=== PATIENT | female | born 1950 | race Caucasian/White ===

== ENCOUNTER 2019-06-26 01:56 | Inpatient (IN) ==
[2019-06-26] MEDS ORDERED: NS 1,000 ML IV ONE (02:04)
[2019-06-26] MEDS ORDERED: ZOFRAN IV ONE (02:04)
[2019-06-26] MEDS ORDERED: MORPHINE IV ONE (02:04)
[2019-06-26 02:43] LABS: BASO# 0.01 X1000 (0.0-0.2); BASO% 0.1 % (0.0-0.8); EOS# 0.01 X1000 (0.0-0.7); EOS% 0.1 % (0.0-10.0); HEMATOCRIT 27.9 % (37.0-47.0); HEMOGLOBIN 10.1 g/dL (12.0-16.0); IMM GRAN# 0.04 X1000 (0.0-0.04); IMM GRAN% 0.5 % (0.0-0.5); LYMPH# 1.16 X1000 (1.2-3.4); LYMPH% 13.9 % (20.5-51.1); MCH 38.1 PG (27-31); MCHC 36.2 g/dL (33-37); MCV 105.3 FL (81-99); MONO# 0.95 X1000 (0.11-0.59); MONO% 11.4 % (1.7-9.3); MPV 12.1 FL (7.4-10.4); NEUT# 6.19 X1000 (1.4-6.5); PLT 99 X1000 (130-400); RBC 2.65 XMIL (4.2-5.4); RDW 12.9 % (11.5-14.5); WBC 8.36 X1000 (4.8-10.8)
[2019-06-26 03:13] LABS: AGAP 23; ALB/GLOB RATIO 1.4; ALBUMIN 4.3 g/dL (3.5-5.0); ALKALINE PHOSPHATASE 140 U/L (32-104); BUN 39 mg/dL (8-22); CALCIUM 9.7 mg/dL (8.8-10.2); CHLORIDE 91 mmol/L (98-107); COSMO 285; CREATININE 0.7 mg/dL (0.5-0.9); ESTIMATED GFR > 60; GLUCOSE 163 mg/dL (70-104); GOT 92 U/L (10-30); GPT 55 U/L (10-36); LIPASE 69 U/L (13-60); SODIUM 136 mmol/L (136-145); TCO2 22 mmol/L (25-35); TOTAL BILIRUBIN 2.75 mg/dL (0.20-1.00); TOTAL PROTEIN 7.4 g/dL (6.3-8.3)
--- NOTE | 2019-06-26 04:16 | PROVIDER DOCUMENTATION ---
HPI-General Adult - General Chief Complaint: N/V/D Stated Complaint: n/v Time Seen by Provider: 06/26/19 02:02 Source: patient Allergies/Adverse Reactions: Patient Allergies Allergy/AdvReac Type Severity Reaction Status Date / Time No Known Allergies Allergy Verified 02/23/18 10:38 Home Medications: Home Medication List Medication Instructions Recorded Confirmed Last Taken Type Escitalopram Oxalate [Lexapro] 5 mg PO DAILY 02/23/18 02/23/18 02/22/18 History Lisinopril/Hydrochlorothiazide 1 each PO DAILY 02/23/18 02/23/18 02/22/18 History [Lisinopril-Hctz 10-12.5 mg Tab] Ondansetron HCl [Zofran] 4 mg PO Q6-8H PRN PRN #10 tablet 02/23/18 Unknown Rx - History of Present Illness -Gen Adult Nature of Presenting Problems: Pt presents with n/v/d, x 1 week, getting progressively worse, pt reports dark colored vomit, with associated ap, generalized, comes and goes, pt denies f/c, magdaleno, cp, sob, cough, pt is lying in bed in no acute distress. Location of Pain/Injury: reports: abdomen Pain Radiation: reports: no radiation Quality of Pain: reports: sharp Severity: reports: moderate Onset/Duration: reports: 1 week ago Timing: reports: still present Context/Activities at Onset: reports: none Modifying Factors: improves with: nothing Associated Symptoms: reports: diarrhea, nausea, vomiting Similar Symptoms Previously?: No Recently seen or treated by another doctor?: No Review of Systems - Adult - REVIEW OF SYSTEMS - ADULT Constitutional: reports: no symptoms reported Eyes: reports: no symptoms reported Ears, Nose, Mouth & Throat: reports: no symptoms reported Cardiovascular: reports: no symptoms reported Respiratory: reports: no symptoms reported Gastrointestinal: reports: see HPI Genitourinary: reports: no symptoms reported Musculoskeletal: reports: no symptoms reported Integumentary: reports: no symptoms reported Neurological: reports: no symptoms reported Psychiatric: reports: no symptoms reported Endocrine: reports: no symptoms reported Hematologic/Lymphatic: reports: no symptoms reported Allergic/Immunologic: reports: no symptoms reported All Other Systems: Reviewed and Negative Past History - Adult - PAST MEDICAL HISTORY-ADULT Review of Records: reports: Old Records Reviewed, Nursing Assessment Review, Medications Reviewed, Social history reviewed & non-contributory. Major Childhood Illnesses: reports: denies history Cardiovascular: reports: denies history Respiratory: reports: denies history Gastrointestinal: reports: denies history Obstetrical/Gynecological: reports: denies history Genitourinary: reports: denies history Musculoskeletal: reports: denies history Neurological: reports: denies history Psychiatric: reports: denies history Endocrine/Immune: reports: denies history Other Conditions: reports: denies history Physical Exam-General - PHYSICAL EXAM-ADULT Initial Vital Signs Reviewed: Yes - CONSTITUTIONAL General Appearance: appears well - EYES Eyes: PERRL/EOMI - HEAD, EARS, NOSE, MOUTH & THROAT HENMT: normocephalic/atraumatic - NECK Neck: normal inspection - RESPIRATORY Respiratory: lungs clear, no respiratory distress, no accessory muscle use - CARDIOVASCULAR Cardiovascular: regular rate, rhythm - GASTROINTESTINAL (ABDOMEN) Abdominal Exam: non tender, soft - LYMPHATIC Lymphatic: no adenopathy - MUSCULOSKELETAL Back Exam: normal inspection Extremity: normal range of motion - SKIN Integumentary: normal color - NEUROLOGIC Neurologic: grossly normal - PSYCHIATRIC Psych/Mental Status: normal mood/affect Progress - PLAN OF CARE/RESULTS Progress/Plan/Lab Results: Vital Signs - 8 hr 06/26/19 02:15 06/26/19 02:23 06/26/19 02:30 Blood Pressure 127/110 132/99 132/90 O2 Sat by Pulse Oximetry 96 98 100 06/26/19 02:19 Stool Occult Blood (JENNIFER) - Final Stool Laboratory Results - last 24 hr 06/26/19 06/26/19 06/26/19 02:10 02:10 02:10 WBC 8.36 RBC 2.65 L Hgb 10.1 L Hct 27.9 L MCV 105.3 H MCH 38.1 H MCHC 36.2 RDW Std Deviation 12.9 Plt Count 99 L MPV 12.1 H Immature Gran % (Auto) 0.5 Neut % (Auto) 74.0 Lymph % (Auto) 13.9 L [place] % (Auto) 11.4 H Eos % (Auto) 0.1 Baso % (Auto) 0.1 Immature Gran # (Auto) 0.04 Neut # (Auto) 6.19 Lymph # (Auto) 1.16 L [place] # (Auto) 0.95 H Eos # (Auto) 0.01 Baso # (Auto) 0.01 Sodium 136 Potassium 3.0 L Chloride 91 L Carbon Dioxide 22 L Anion Gap 23 BUN 39 H Creatinine 0.7 Estimated GFR/1.73 m2 > 60 BUN/Creatinine Ratio 56 Glucose 163 H Calculated Osmolality 285 Calcium 9.7 Total Bilirubin 2.75 H AST 92 H ALT 55 H Alkaline Phosphatase 140 H Total Protein 7.4 Albumin 4.3 Globulin 3.1 Albumin/Globulin Ratio 1.4 Lipase 69 H Plasma Lactate 3.9 H Orders Category Date Time Status CT ABD/PELVIS W/IV CONT ONLY [CT] Stat Exams 06/26/19 02:04 Taken CBC WITH ELECTRONIC DIFF [HEME] Stat Lab 06/26/19 02:10 Completed COMPREHENSIVE METABOLIC PANEL [CHEM] Stat Lab 06/26/19 02:10 Completed LACTATE, PLASMA [CHEM] Stat Lab 06/26/19 02:10 Completed LIPASE [CHEM] Stat Lab 06/26/19 02:10 Completed OCCULT BLOOD SCREENING [STOOL] Stat Lab 06/26/19 02:19 Completed UA [URINALYSIS W/POSS RFLX CULT] [URINALYSIS] Stat Lab 06/26/19 02:03 Uncollected 0.9% Sodium Chloride Inj [Ns] 1,000 ml Med 06/26/19 02:04 Discontinued IV 999 mls/hr Morphine Med 06/26/19 02:04 Discontinued 4 mg IV NOW ONE Ondansetron [Zofran] Med 06/26/19 02:04 Discontinued 8 mg IV NOW ONE Result Diagrams: 06/26/19 02:10 06/26/19 02:10 Departure - Departure Date of Disposition Decision: 06/26/19 Time of Disposition Decision: 05:00 DIAGNOSIS: Nausea vomiting and diarrhea GI bleed Qualifiers: GI bleed type/associated pathology: unspecified gastrointestinal hemorrhage type Qualified Code(s): K92.2 - Gastrointestinal hemorrhage, unspecified Disposition: ADMITTED INPATIENT 09 Certified Medical Emergency: Emergent Condition: Stable Referrals and Follow-Ups: ADY MARCANO [Primary Care Provider] - - Critical Care Note This patient required my direct & personal management of CC.: No Attestation - Physician/ HUMAIRA Attestation Patient care was provided by Advanced Practice Provider:: No The physician spent face to face time with patient:: Yes Advanced Practice Provider documentation review:: Supervising physician onsite and consulted in the evaluation and care of this patient. The physician did have a face to face encounter with the patient.
[2019-06-26 04:43] LABS: URINE SOURCE CLEAN CATCH
[2019-06-26 04:48] LABS: BILIRUBIN URINE SMALL (NEGATIVE); BLOOD URINE MODERATE (NEGATIVE); COLOR ORANGE; GLUCOSE URINE NEGATIVE (NEGATIVE); KETONE URINE 40 mg/dL (NEGATIVE); LEUKOCYTES URINE LARGE (NEGATIVE); NITRITE URINE NEGATIVE (NEGATIVE); PROTEIN URINE TRACE mg/dL (NEGATIVE); SP GRAVITY URINE 1.033; TURBIDITY URINE HAZY (CLEAR); UROBILINOGEN URINE 4 mg/dL (NORMAL)
[2019-06-26 04:58] LABS: URINE CASTS NONE SEEN; URINE CRYSTALS NONE SEEN; URINE SMALL ROUND CELLS NONE SEEN; URINE YEAST NONE SEEN
[2019-06-26 04:59] LABS: UR EPITHELIAL CELLS <10 /HPF (<10); URINE BACTERIA 4+ /HPF; URINE RBC <10 /HPF (<10); URINE WBC 20-40 /HPF (<10)
[2019-06-26] MEDS ORDERED: POTASSIUM CHLORIDE 40 MEQ/SWI 40 MEQ/100 ML IVPB IV ONE (05:54)
[2019-06-26] MEDS ORDERED: SODIUM CHLORIDE 0.9% INJ SCH (06:00)
[2019-06-26] MEDS ORDERED: PROTONIX IV SCH (06:00)
[2019-06-26] MEDS: POTASSIUM CHLORIDE 20 MEQ/SWI 20 MEQ/100 ML IVPB IV SCH ×2 (06:14→09:19)
[2019-06-26 06:28] LABS: HEMOGLOBIN A1C 5.1 % (4.8-6.0)
--- NOTE | 2019-06-26 06:29 | EKG Report ---
Test Performed on : 06/26/2019 06:10:59 AM Test Reason : N/V Blood Pressure : / mmHG Vent. Rate : 104 BPM Atrial Rate : 104 BPM P-R Int : 118 ms QRS Dur : 086 ms QT Int : 354 ms P-R-T Axes : 008 005 053 degrees QTc Int : 465 ms Sinus tachycardia. with premature ventricular complexes. or fusion complexes Otherwise normal ECG No previous ECGs available Unconfirmed Result
[2019-06-26 06:31] LABS: PTT 28.7 Seconds (22.3-41.8)
[2019-06-26 06:46] LABS: INR 1.22; PROTIME 15.6 Seconds (11.0-16.0)
[2019-06-26 07:09] LABS: HEMATOCRIT 25.5 % (37.0-47.0); HEMOGLOBIN 9.1 g/dL (12.0-16.0)
[2019-06-26] MEDS ORDERED: POTASSIUM CHLORIDE 20% LIQUID PO ONE (07:25)
[2019-06-26] MEDS ORDERED: ZOFRAN IV PRN (07:26)
--- NOTE | 2019-06-26 07:27 | Diag Imaging Result Doc PS360 ---
EXAM: CT ABD/PELVIS W/IV CONT ONLY 06/26/2019 HISTORY: colitis TECHNIQUE: This exam was performed using automated exposure control, adjustment of mA or kV according to patient size, and/or use of iterative reconstruction technique. COMMENT: There are fibrotic changes present in the lung bases which have not changed significantly since 02/23/2018. There is a hiatal hernia. There is profound hepatic steatosis. There is no evidence of cholelithiasis. The spleen is not enlarged. The adrenal glands are not enlarged. The kidneys are without evidence of hydronephrosis or stones. There is a small cortical cyst anteriorly in the right kidney. There is a lesion in the upper pole of the left kidney which was also demonstrated the time the previous examination and which has not apparently changed significantly in size. The CT density is stable at almost 60 Hounsfield units on both the arterial and portal venous phases suggesting that this is a hyperdense cyst. There is no record of previous renal ultrasound, which may be desirable for further evaluation. The aorta is not distended. The mesenteric and renal arteries are patent. The pancreas is unremarkable. There is no evidence of bowel obstruction. There is no evidence of significant adenopathy. Pelvis: The appendix is not distended or inflamed in appearance. There is no evidence of free fluid. There are a few diverticula in the sigmoid colon without evidence of diverticulitis. The urinary bladder is not distended. There is severe degenerative arthritis in the right hip. There are degenerative changes in the lumbar spine with spinal stenosis at L4-5. IMPRESSION: 1. Hepatic steatosis. 2. No evidence of colitis. 3. Probable hyperdense cyst in the left upper renal pole. Advise further evaluation with ultrasonography. Other nonacute findings as described above. Electronically signed by Ayaan Gil 06/26/2019 7:25 AM
[2019-06-26] MEDS: MORPHINE IV PRN ×2 (07:32→10:14)
[2019-06-26] MEDS ORDERED: TYLENOL PR PRN (08:02)
[2019-06-26] MEDS ORDERED: POTASSIUM PHOSPHATE 60 MEQ in NS 250 ML IV ONE (08:48)
[2019-06-26] MEDS: NS + KCL 40 MEQ 1,000 ML IV SCH ×3 (09:19→17:45)
[2019-06-26] MEDS ORDERED: NEUTRA-PHOS PO ONE (10:10)
--- NOTE | 2019-06-26 11:35 | HISTORY AND PHYSICAL ---
PRIMARY CARE PROVIDER: LEA Lee. DATE AND TIME: 06/26/2019 at 0545. CHIEF COMPLAINT: Nausea, vomiting, diarrhea. HISTORY OF PRESENT ILLNESS: Ms. Burroughs is a 69-year-old female, who states that approximately 2 weeks ago she did have a little cold, though she treated this with over-the- counter medications. She is not taking any antibiotics reportedly. She states that after this approximately 1 week ago she began having initially nausea and vomiting, and approximately 4 days ago began having diarrhea as well. The patient states for a week she has had daily episodes of vomiting. She states everything that she eats comes right back up. She has not been able to hold down fluids or food. She does report that over the last day or so she has had brown emesis. She also reports for the last 4 days she has had diarrhea. This initially started off as brown stools, though has progressed to being more loose, and the nurses reported in the ER this did appear to be black in appearance. She also reports that she has been having some epigastric pain that is a burning type pain in nature. She was tender in this area upon palpation. Though she denies any fever, body aches, or chills, she has reported some dizziness, feeling lightheaded and weak. She has been having dizziness, feeling lightheaded and weak. She denies any chest pain or shortness of breath. The patient denies any dysuria or urinary frequency, though she has reported that she has had a very strong odor to her urine, though she denies any lower abdominal pain or low back pain as well. She denies any pain, numbness, tingling or swelling in extremities. The patient states that she took 1 ibuprofen on either Tuesday or Tuesday, just 2 to 3 days ago, though denies any other [id number] use of NSAIDs. She denies any anticoagulation or antiplatelet use. The patient does report that she is a daily drinker, she does drink 1 to 2 glasses of wine daily, though she states she has not drank in a couple of weeks. She denies being around anyone that is sick or with similar symptoms. She denies any recent travel. She denies any new medication or any changes to her current medicines. Upon evaluation in the ER, the patient was noted to be slightly anemic with a hemoglobin 10.1, hematocrit 27.9, though her platelet count was a little low at 99. She also did have some hypokalemia, potassium of 3, though she does have transaminitis. Urinalysis did show moderate blood, large leukocytes, 20 to 40 white blood cells and 4+ bacteria. Given her symptoms, I did perform a CT abdomen and pelvis in the ER, which did show hepatic steatosis. There was no evidence of colitis. There was hyperdense cyst in the left upper renal pole. Her Hemoccult stool was positive. As previously mentioned, the nurses did note that upon her arrival she did have black-colored stool noted on her person. At this time, the patient will be admitted for further treatment and evaluation of her nausea, vomiting, diarrhea and likely upper GI bleed. REVIEW OF SYSTEMS: A 14 point review of systems was conducted with the patient. All were negative, except for pertinent positives mentioned in the above HPI. PAST MEDICAL HISTORY: 1. Hypertension. 2. History of depression. 3. Attention deficit disorder. 4. Daily alcohol use. PAST SURGICAL HISTORY: 1. A total of 3 right knee surgeries, the first 2 being arthroscopies and the last one being a total right knee replacement. 2. Breast augmentation. SOCIAL HISTORY: The patient states that she does live by herself and is normally able to perform activities of daily living and get around without assistive devices, though she has been very weak since her symptoms have started. She reports that she used to only occasionally smoke, though she has not smoked since age 32. She does report she has daily alcohol use with 1 to 2 glasses of wine daily. She denies any illicit drug use. FAMILY HISTORY: Positive for her mother having a history of multiple sclerosis. Her father was borderline diabetic. All other siblings are healthy. ALLERGIES: Patient has no known allergies. HOME MEDICATIONS: We are waiting for the patient's home medication list to be updated and verified. She verbally reports to me that she takes some Ritalin, an antidepressant and a blood pressure medication. DIAGNOSTIC DATA/LABORATORY RESULTS: White blood cell count is 8360, hemoglobin 10.1, hematocrit 27.9, platelet count is 99. PT 15.6, INR 1.22, PTT is 28.7. Sodium 136, potassium 3, chloride 91, serum bicarbonate is 22, BUN 39, creatinine 0.7 with a GFR greater than 60. Glucose 163, calcium 9.7, magnesium 1.9, total bilirubin is 2.75, AST 92, ALT 55, alkaline phosphatase is 140, lipase 69. Plasma lactate is 3.9. Urinalysis was obtained via clean catch, was positive for protein, ketones, blood, bilirubin, large leukocytes, 20 to 40 white blood cells, and 4+ bacteria. EKG showed sinus tachycardia at a rate of 104 with a QTc of 465. CT abdomen and pelvis did show hepatic steatosis. There was no evidence of colitis. There was a probable hyperdense CS in the left upper renal pole. The radiologist did advise further evaluation with ultrasound. PHYSICAL EXAMINATION: VITAL SIGNS: Respirations 18, blood pressure is 132/86 with a MAP of 98. GENERAL: Ms. Burroughs is a pleasant 69-year-old female. She was resting on the ER stretcher. She was in no acute distress. She was awake, alert, and able to answer questions appropriately. HEENT: Head is atraumatic, normocephalic. Pupils are equal, round, reactive to light, were 3 mm bilaterally and brisk. Conjunctivae were slightly pale. Oral mucosa is moist. Oropharynx is clear. NECK: Supple. Trachea midline. CARDIOVASCULAR: Patient has S1, S2. No murmurs, gallops, rubs appreciated with a regular rate and rhythm. PULMONARY: Patient has symmetrical chest expansion bilaterally. Lung sounds are clear to auscultation in bilateral full simmons. ABDOMEN: Soft. It does not appear to be distended. The patient does have a slightly protuberant abdomen noted. She did have some tenderness in the epigastric area, though no rebound tenderness noted. Bowel sounds are present in all 4 quadrants, were normoactive. EXTREMITIES: No cyanosis or edema noted. Pulse, motor, and sensory were intact in all extremities. Radial pulses and pedal pulses were 2+ bilaterally. INTEGUMENTARY: The patient's skin color is slightly pale, dry and intact. NEUROLOGICAL: Patient is alert and oriented to person, place, time, and situation. She is able to move all extremities. There were no focal neurological deficits noted. ASSESSMENT AND PLAN: 1. Gastrointestinal bleed. Given the patient's reported possible vomiting of what sounds like coffee-ground emesis and reports of black stools by the nurses and positive Hemoccult stool, we suspect this is likely upper gastrointestinal bleed. The patient does report daily alcohol use of 1 to 2 glasses of wine a day. She will be on nothing by mouth at this time. We have placed her with Protonix 40 mg intravenous push every 12 hours. She is slightly anemic at this time. We will do a series of hemoglobins and hematocrits to monitor this closely and transfuse if necessary. We will provide some gentle intravenous hydration as well. At this time, the patient is hemodynamically stable. We will continue to monitor closely. We will await Gastroenterology consultation, evaluation and recommendations. 2. Nausea, vomiting, diarrhea. The patient reports this has been ongoing for a week. We have provided antiemetics. Will provide gentle intravenous hydration. Go ahead and order stool studies as well, and we will await Gastroenterology evaluation. 3. Transaminitis. Further evaluation of this: We have ordered a hepatitis profile, a lipid profile and an abdominal ultrasound as well. The patient's CT of the abdomen and pelvis did show hepatic steatosis. We will await these results and continue to follow. 4. Daily alcohol use. The patient reports that she drinks 1 to 2 glasses of wine a day, though states that she has not drank anything in the past week or so since she has not felt well. We will continue to monitor the patient closely for any signs of alcohol withdrawal. She was slightly hypokalemic with a potassium of 3, though magnesium was within normal limits. We are awaiting a phosphorus level. We will do daily banana bags. We will do as- needed Ativan and continue to follow. 5. Asymptomatic bacteriuria. We are awaiting a urine culture at this time. We will await those results and continue to follow. 6. Deep vein thrombosis prophylaxis provided with sequential compression devices. The patient has been placed on the medical floor telemetry. She will have vital signs q. 4 hours, strict intake and output. She will be n.p.o. until evaluated by Gastroenterology and until she has had her abdominal ultrasound. Further orders and recommendations pending hospital course, diagnostic studies and physician evaluation. Patient seen and examined by me face to face, all the laboratory, vitals signs and images were reviewed, patient presented to the emergency department complaining of nausea, vomiting and diarrhea associated with dizziness, as per the patient she started feeling bad two weeks ago with cold like symptoms and she took over the counter medications, possible NSAIDs, a few days ago she started having nausea with coffee ground emesis and melena, she is a possible alcoholic she well be admitted to the medical floor, IV fluids, GI consults, abdominal ultrasound, PPIs, I agree with the MEDICAL ORDERLY's assessment and plan, Trung Tafoya MD. Dictated by LEA Barfield for Trung Whitt MD cc: Trung Whitt MD MTDD
[2019-06-26] MEDS ORDERED: DIPRIVAN 1% ONE (12:08)
[2019-06-26] MEDS: M.V.I.-12 10 ML, FOLIC ACID 1 MG, MAGNESIUM SULFATE 1 GM, THIAMINE 100 MG in NS 1,000 ML IV SCH ×2 (12:30→13:04)
--- NOTE | 2019-06-26 12:33 | ENDOSCOPY OPERATIVE NOTE ---
[facility] ENDOSCOPY OPERATIVE NOTE , PATIENT: Jyothi Burroughs ADMISSION DATE: 06/26/2019 MR#: [id number] [facility] 1950 [facility] [id number] EGD PROCEDURE REPORT PROCEDURE DATE: 06/26/2019 SURGEON: Eduardo Joyce MD STATUS: inpatient DOCUMENTATION SUPERVISOR: PREOPERATIVE DIAGNOSIS: The patient is a 69 yr old female here for an EGD due to vomiting, epigastri c abdominal pain, and melena. PROCEDURE PERFORMED: EGD w/ biopsy MEDICATIONS: Per Anesthesia TOPICAL ANESTHETIC: none CONSENT: The patient understands the risks and benefits of the procedure and understands that these r isks include, but are not limited to: sedation, allergic reaction, infection, perforation and/or bleeding. Alternative means of evaluation and treatment include, among others: physical exam, x-rays, and/or surgical intervention. The patient elects to proceed with this endoscopic procedure. HISORY AND PHYSICAL: 06/26/2019 function. Hand hygiene and appropriate measures for infection prevention was taken. After the risks, benefits and alternatives of the procedure were thoroughly explained, Informed consent was verified, confirmed and timeout was successfully executed by the treatment team. The patient was anesthetized with topical anesthesia and the Pentax [id number] endoscope was introduced through the mouth and advanced to the second portion of the duodenu m. Retroflexion was performed in the stomach and revealed no abnormalities. The gastroscope was then slowly withdraw n and removed. ESOPHAGUS: Reflux esophagitis was found in the distal esophagus. Esophagitis was LA Class B: One or more mucosal breaks > 5mm, but without continuity across mucosal folds. STOMACH: Multiple erosions were found in the gastric antrum. Mild gastritis (inflammation) was foun d in the gastric antrum. H. pylori biopsies were taken. A single non-bleeding and clean-based ulcer ranging betwee n 5-9mm in size with surrounding edema was found. Biopsies were taken at edge of the ulcer. DUODENUM: Mild duodenal inflammation was found in the duodenal bulb. SPECIMENS REMOVED: Yes ADVERSE EVENTS: There were no complications. POSTOPERATIVE DIAGNOSIS: 1. Reflux esophagitis in the distal esophagus 2. Multiple erosions were found in the gastric antrum 3. Gastritis (inflammation) was found in the gastric antrum 4. Single ulcer ranging between 5-9mm in size was found; biopsies were taken 5. Duodenal inflammation was found in the duodenal bulb RECOMMENDATIONS: 1. Await biopsy results 2. Regular diet Transition PPI from IV to PO BID and continue for 3 months Avoid aspirin and NSAIDs REPEAT EXAM: Return in 3 months for EGD. Eduardo Joyce MD eSigned: Eduardo Joyce MD 06/26/2019 1:33 PM cc: PATIENT NAME: Jyothi Burroughs MR#: [id number]
[2019-06-26] MEDS ORDERED: XYLOCAINE-MPF 2% ONE (12:35)
[2019-06-26] MEDS: NEUTRA-PHOS PO SCH ×3 (13:04→20:12)
--- NOTE | 2019-06-26 13:06 | GASTROENTEROLOGY CONSULTATION ---
DATE: 06/26/2019 REASON FOR CONSULTATION: GI bleed, abnormal LFTs. HISTORY OF PRESENT ILLNESS: Ms. Jyothi Burroughs is a 69-year-old woman with a past medical history of hypertension who presents with 2 weeks of nausea, vomiting, and diarrhea. The patient describes having nonbloody, nonbilious emesis multiple times a day that is aggravated with p.o. intake including water. She has had some black stools. No hematochezia. She has had about 4 to 5 bowel movements per day that are small. she has had some associated abdominal pain in the upper abdomen that is mild as well as some lightheadedness, dizziness, and generalized weakness. She admits to having some sweats and decreased p.o. intake. No chills, fever, chest pain, or shortness of breath. She does state she drinks about 1 glass of wine per night. She says she makes sure she does not do that around her grandchildren. She has drank for many years. She denies a history of alcoholism, DUIs, or complications from alcoholism. REVIEW OF SYSTEMS: As per HPI, otherwise 12 point review of systems is negative. PAST MEDICAL HISTORY: Hypertension. PAST SURGICAL HISTORY: Right knee replacement. FAMILY HISTORY: Family history of MS. No GI malignancies. SOCIAL HISTORY: One glass of per night for many years. No smoking or drug use. MEDICATIONS: Lisinopril. ALLERGIES: No known drug allergies. PHYSICAL EXAMINATION: Vital Signs: Temperature is 98.0 degrees, heart rate of 99, respiratory rate 18, blood pressure 133/88, O2 saturation 97% on room air. General: The patient is awake, alert, oriented, in no acute distress. HEENT: Sclerae are anicteric. Moist mucous membranes. Extraocular motor intact. Neck: Supple. No JVD or lymphadenopathy. Cardiac: Normal rate and rhythm. No murmurs. Lungs: Clear to auscultation bilaterally. Abdomen: Soft, nontender, nondistended. Normoactive bowel sounds. No rebound or guarding. Extremities: No clubbing, cyanosis, or edema. Neurologic: Nonfocal. LABS: White count of 8.3, hemoglobin 9.1, MCV of 105, platelets of 99,000. INR of 1.22. Sodium 136, potassium 3.0, chloride of 91, bicarb 22, BUN of 39, creatinine of 0.7, glucose of 163, phosphorus of 0.9. Total bilirubin of 2.75, AST of 95, ALT of 55, alkaline phosphatase of 114. Troponin is normal. Lipase of 69, lactate of 3.9. UA shows moderate blood, trace protein, large leukocytes, a few epithelial cells. IMAGING: CT of the abdomen and pelvis shows severe hepatic steatosis. No splenomegaly. No evidence of colitis. Probable hyperdense cyst in the left upper renal pole. ASSESSMENT AND PLAN: Ms. Jyothi Burroughs is a 69-year-old woman with a past medical history of hypertension who presents with 2 weeks of nausea, vomiting, and diarrhea, and reported abdominal pain and melena. The patient was found on presentation to have macrocytic anemia, thrombocytopenia, abnormal liver function tests with low phosphorus, concerning for probable liver disease. Her CT shows hepatic steatosis without splenomegaly. I suspect that she does have cirrhosis given her thrombocytopenia, and AST, ALT elevation, and mildly elevated INR. I think this is likely from JAYLYN, given her history of regular alcohol use. She also has some elevated glucose but her A1c is 5.1, so no evidence of diabetes. For her melena, we will keep her nothing per oral, on a proton pump inhibitor twice a day intravenously, and plan for a diagnostic esophagogastroduodenoscopy today. She does have elevated lactate. I recommend fluid resuscitation. For alcoholism, thiamine, folate acid, multivitamin, replace her phosphorus, and monitor for alcohol withdrawal. She says she has not had any alcohol for the last 3 weeks. However, I am concerned that she potentially could have some withdrawal symptoms here if she actually did drink recently. There is no toxicology level here or alcohol level here. Thrombocytopenia, I suspect likely related to alcoholism. Abnormal urinalysis, the patient denies any urinary symptoms. Abnormal liver function tests, check her acute hepatitis panel to rule out hepatitis B and C. Anemia, check folate, B12, and iron studies including ferritin, iron, and total iron binding capacity. Thank you for this consult. We will follow with you. Please call with any questions or concerns.
[2019-06-26] MEDS ORDERED: LIBRIUM PO ONE (14:22)
--- NOTE | 2019-06-26 14:46 | PROGRESS NOTE ---
DATE: 06/26/2019 SUBJECTIVE: Today Ms. Burroughs refers to be doing fairly okay. She was seen obviously shaking. She has undergone EGD and was found to have some gastric, non bleeding ulcer. Biopsies were taken. OBJECTIVE: Vital signs: Blood pressure is 142/92, pulse of 102, respiration is 18, temperature is 98.4 degrees. General: Ms. Burroughs is a 69-year-old female. She is in bed, no distress. HEENT: Mucosa is pink and moist. Anicteric. Acyanotic. Neck: Supple. Chest: Air entry is bilaterally reduced. Some distant wheezing bilateral. Cardiovascular: Regular rate and rhythm. Abdomen: Soft. Extremities: No pedal edema. [employer]: Patient is awake, alert. She does have some tremors bilaterally. LABORATORY DATA: Hemoglobin is 9.1. Chemistry is also reviewed. Phosphorus is 0.9. ASSESSMENT: 1. Some coffee-ground emesis with melenic stool consistent with gastrointestinal bleed. The patient is status post esophagogastroduodenoscopy. It appears there was a nonbleeding gastric ulcer and some esophagitis. We will continue with recommendations from Gastroenterology. 2. Severe alcohol use and abuse noted. 3. Tremors concerning for alcohol withdrawal. We started the patient on a long-acting benzodiazepine and as-needed short-acting benzodiazepine as well. I have also started her on gabapentin. 4. Electrolyte abnormality secondary to alcohol use and abuse. Will replace the potassium, the phosphates and magnesium. 5. Mild lactic acidosis most likely from dehydration. 6. Alcohol-induced hepatitis. 7. Hepatic steatosis from alcohol abuse. PLAN: So, we will continue with adequate hydration on Ms. Burroughs. We will replace all her electrolyte abnormalities. I will repeat her potassium and phosphate for later on today and continue replacement if needed. She is status post EGD. We are going to advance her diet. She is also on PPI. I will continue addressing the possibility of alcohol withdrawal. cc: Tyrell De Guzman MD
[2019-06-26 15:24] LABS: URINE SOURCE CLEAN CATCH
[2019-06-26 15:44] LABS: BILIRUBIN URINE SMALL (NEGATIVE); BLOOD URINE SMALL (NEGATIVE); COLOR ORANGE; GLUCOSE URINE NEGATIVE (NEGATIVE); KETONE URINE 40 mg/dL (NEGATIVE); LEUKOCYTES URINE LARGE (NEGATIVE); NITRITE URINE POSITIVE (NEGATIVE); PH URINE 6.5; PROTEIN URINE 30 mg/dL (NEGATIVE); SP GRAVITY URINE 1.044; TURBIDITY URINE HAZY (CLEAR); UROBILINOGEN URINE 4 mg/dL (NORMAL)
[2019-06-26 15:50] LABS: UR EPITHELIAL CELLS >10 /HPF (<10); URINE BACTERIA 4+ /HPF; URINE RBC <10 /HPF (<10); URINE WBC TNTC /HPF (<10)
[2019-06-26 16:05] LABS: URINE CASTS NONE SEEN; URINE CRYSTALS NONE SEEN; URINE SMALL ROUND CELLS TRANS PRESENT; URINE YEAST NONE SEEN
[2019-06-26 16:34] LABS: HEMATOCRIT 23.8 % (37.0-47.0); HEMOGLOBIN 8.1 g/dL (12.0-16.0)
[2019-06-26] MEDS: PROTONIX PO SCH (20:12)
[2019-06-26] MEDS: NEURONTIN PO SCH (20:12)
[2019-06-26 21:29] LABS: HEMATOCRIT 22.4 % (37.0-47.0); HEMOGLOBIN 7.4 g/dL (12.0-16.0)
[2019-06-27] MEDS ORDERED: NS 500 ML ONE (01:51)
[2019-06-27] MEDS: NS + KCL 40 MEQ 1,000 ML IV SCH ×5 (04:28→21:01)
[2019-06-27 08:14] LABS: BASO# 0.01 X1000 (0.0-0.2); BASO% 0.3 % (0.0-0.8); EOS# 0.02 X1000 (0.0-0.7); EOS% 0.5 % (0.0-10.0); IMM GRAN# 0.02 X1000 (0.0-0.04); IMM GRAN% 0.5 % (0.0-0.5); LYMPH# 0.91 X1000 (1.2-3.4); LYMPH% 23.9 % (20.5-51.1); MCH 33.1 PG (27-31); MCHC 33.3 g/dL (33-37); MCV 99.3 FL (81-99); MONO# 0.42 X1000 (0.11-0.59); MPV 11.7 FL (7.4-10.4); NEUT# 2.43 X1000 (1.4-6.5); NEUT% 63.8 % (42.2-75.2); PLT 66 X1000 (130-400); RBC 2.72 XMIL (4.2-5.4); RDW 17.9 % (11.5-14.5); WBC 3.81 X1000 (4.8-10.8)
[2019-06-27] MEDS: M.V.I.-12 10 ML, FOLIC ACID 1 MG, MAGNESIUM SULFATE 1 GM, THIAMINE 100 MG in NS 1,000 ML IV SCH (08:19)
[2019-06-27] MEDS: NEUTRA-PHOS PO SCH ×4 (08:19→21:02)
[2019-06-27] MEDS: LIBRIUM PO SCH ×2 (08:19→22:10)
[2019-06-27] MEDS: PROTONIX PO SCH ×2 (08:19→21:02)
[2019-06-27 08:29] LABS: AGAP 12; ALB/GLOB RATIO 1.3; ALBUMIN 3.3 g/dL (3.5-5.0); ALKALINE PHOSPHATASE 129 U/L (32-104); BUN 13 mg/dL (8-22); CALCIUM 8.1 mg/dL (8.8-10.2); CHLORIDE 101 mmol/L (98-107); COSMO 266; CREATININE 0.4 mg/dL (0.5-0.9); ESTIMATED GFR > 60; GLUCOSE 95 mg/dL (70-104); GOT 196 U/L (10-30); GPT 70 U/L (10-36); POTASSIUM 3.9 mmol/L (3.5-5.1); SODIUM 133 mmol/L (136-145); TCO2 20 mmol/L (25-35); TOTAL BILIRUBIN 2.02 mg/dL (0.20-1.00); TOTAL PROTEIN 5.8 g/dL (6.3-8.3)
[2019-06-27 09:09] LABS: IRON SATURATION 24 %; TIBC 237 ug/dL; TOTAL IRON 58 ug/dL (49-151); UNBOUND IRON 179 ug/dL (112-346)
[2019-06-27] MEDS ORDERED: NS IV ONE (09:14)
[2019-06-27] MEDS ORDERED: SODIUM PHOSPHATE IV ONE (09:14)
[2019-06-27 09:16] LABS: FERRITIN 1199 ng/mL (13-150)
[2019-06-27 11:00] LABS: HEPATITIS PROFILE ACUTE SEE COMMENTS
--- NOTE | 2019-06-27 11:18 | PROGRESS NOTE ---
DATE: 06/27/2019 SUBJECTIVE: Today, Ms. Burroughs refers to be feeling a lot better. However, she refers that she is very weak in her lower extremities. She also refers that her shaking is a lot better. OBJECTIVE: Vital Signs: Blood pressure is 146/81, pulse 102, respirations are 18, temperature is 99.3 degrees. General Examination: Ms. Burroughs is a 69-year-old, female. She is in bed. She is not in any distress. HEENT: Mucosa is pink and moist. Anicteric. Acyanotic. Neck: Supple. Chest: Good air entry bilaterally. There were no crepitations. No rhonchi. There was some distant wheezing. Cardiovascular: Regular rate and rhythm. Abdomen: Soft, nontender. Bowel sounds present. Extremities: No pedal edema. BAG PRESSER: The patient is awake, alert, and oriented. The hand tremors have significantly improved. Laboratory Data: Hemoglobin is 9.0 this morning, platelet count is down to 66,000. Chemistry is reviewed. Sodium is 133. AST and ALT are slightly elevated. The patient's current medications have all been reviewed and no new changes. ASSESSMENT: 1. Gastrointestinal bleed manifested by melenic stool and coffee-grounds emesis. The patient's hemoglobin and hematocrit dropped. She is currently status post one unit of packed red blood cells transfused. A repeat hemoglobin and hematocrit has improved to 9. We are going to continue to monitor this. Patient also had an esophagogastroduodenoscopy yesterday which showed some multiple erosions and a single gastric ulcer which was biopsied, some duodenal inflammation that did not seem to have noted any active bleeding. 2. Severe alcohol use and abuse. 3. Mild alcohol withdrawal, improved. 4. Electrolyte abnormalities secondary to alcohol use and abuse (hypophosphatemia, hypomagnesemia). We will continue to replace. 5. Dehydration, improved. 6. Alcohol-induced hepatitis. Liver enzymes were slightly worsened this morning. We are going to continue observing this. 7. Hepatic steatosis from alcohol abuse, noted. 8. 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 We are waiting for physical therapy to evaluate Ms. Burroughs today. PLAN: In general, we are going to continue replacing all her electrolyte abnormalities. She is currently on b.i.d. PPI for the gastric ulcer. We will get physical therapy to evaluate her today and we will repeat her hemoglobin and hematocrit at about noon today. She will be going to rehab. SW aware and looking for placement. cc: Tyrell De Guzman MD MTDD
[2019-06-27 12:07] LABS: HEMATOCRIT 29.1 % (37.0-47.0); HEMOGLOBIN 9.7 g/dL (12.0-16.0)
[2019-06-27 12:55] LABS: AGAP 14; BUN 11 mg/dL (8-22); CALCIUM 8.1 mg/dL (8.8-10.2); CHLORIDE 100 mmol/L (98-107); COSMO 266; CREATININE 0.4 mg/dL (0.5-0.9); ESTIMATED GFR > 60; GLUCOSE 105 mg/dL (70-104); PHOSPHORUS 3.7 mg/dL (2.7-4.5); POTASSIUM 3.7 mmol/L (3.5-5.1); SODIUM 133 mmol/L (136-145); TCO2 19 mmol/L (25-35)
[2019-06-27] MEDS: ROCEPHIN 1 GM in NS 50 ML IV SCH (13:25)
--- NOTE | 2019-06-27 15:58 | Diag Imaging Result Doc PS360 ---
EXAM: CHEST-PORTABLE 06/27/2019 HISTORY: rehab placement TECHNIQUE: AP upright at [id number] COMMENT: There are bilateral breast implants. The heart size and pulmonary vascularity are within normal limits. There is no evidence of acute pulmonary disease and no previous studies are available for comparison. IMPRESSION: No evidence of acute disease. Electronically signed by Ayaan Gil 06/27/2019 3:56 PM
--- NOTE | 2019-06-27 17:40 | Diag Imaging Result Doc PS360 ---
EXAM: US ABDOMEN-COMPLETE 06/27/2019 HISTORY: Transaminitis,Eval. of L Upper Renal Pole Cyst TECHNIQUE: Abdominal ultrasound COMMENT: The pancreas is normal in appearance. The liver is hyperechoic. There is antegrade flow in the portal vein. The gallbladder is clear and nontender. There is no evidence of biliary dilatation the common bile duct measuring less than 6 mm. The kidneys are without evidence of hydronephrosis or mass. There are some cortical cysts bilaterally. No abnormal fluid collections are present. The spleen is not enlarged. The abnormality which was demonstrated on the CT of 06/26/2019 and the upper pole of the left kidney is not clearly demonstrated to be cystic on this study. The possibility of a solid mass cannot be excluded. Contrast ultrasonography may be desirable for further evaluation. IMPRESSION: Hepatic steatosis. The possibility of a solid renal neoplasm in the upper pole of the left kidney cannot be excluded. Electronically signed by Ayaan Gil 06/27/2019 5:37 PM
[2019-06-27] MEDS: NEURONTIN PO SCH (21:02)
--- NOTE | 2019-06-27 22:03 | PROVIDER PROGRESS NOTE ---
Progress Note S: No acute overnight events. No N/V/F, CP, SOB. She reports some diarrhea with dark stools. No abdominal pain. O: Last Vital Signs Temp 97.9 F 06/28/19 04:12 Pulse 92 H 06/28/19 04:12 Resp 20 06/28/19 04:12 BP 142/83 06/28/19 04:12 Pulse Ox 100 06/28/19 04:12 Height 5 ft 7 in Weight 173 lb GEN: unkept, awake, alert, NAD HEENT: anicteric, MMM NECK: supple, no JVD PULM: CTAB, no wheezing CV: RRR, no murmurs ABD: soft NT,ND, NABS, no ascites EXT: no cce NEURO: nonfocal, no asterixis LABS: 06/26/19 06/27/19 06/27/19 02:10 07:43 07:43 WBC 3.81 L Hgb 10.1 L 9.0 L D Plt Count 66 L D Sodium 133 L Potassium 3.9 Chloride 101 Carbon Dioxide 20 L BUN 13 D Creatinine 0.4 L Glucose 95 Iron TIBC % Saturation Unsat Iron Binding Ferritin Total Bilirubin 2.02 H AST 196 H ALT 70 H Alkaline Phosphatase 129 H Total Protein 5.8 L Albumin 3.3 L Vitamin B12 Folate 06/27/19 06/27/19 06/27/19 07:43 07:43 07:43 WBC Hgb Plt Count Sodium Potassium Chloride Carbon Dioxide BUN Creatinine Glucose Iron 58 TIBC 237 % Saturation 24 Unsat Iron Binding 179 Ferritin 1199 H Total Bilirubin AST ALT Alkaline Phosphatase Total Protein Albumin Vitamin B12 808 Folate 11.8 EGD 06/26 ESOPHAGUS: Reflux esophagitis was found in the distal esophagus. Esophagitis was LA Class B: One or more mucosal breaks > 5mm, but without continuity across mucosal folds. STOMACH: Multiple erosions were found in the gastric antrum. Mild gastritis (inflammation) was found in the gastric antrum. H. pylori biopsies were taken. A single non-bleeding and clean-based ulcer ranging between 5-9mm in size with surrounding edema was found. Biopsies were taken at edge of the ulcer. DUODENUM: Mild duodenal inflammation was found in the duodenal bulb. ASSESSMENT AND PLAN: Ms. Jyothi Burroughs is a 69-year-old woman with a past medical history of hypertension who presents with 2 weeks of nausea, vomiting, and diarrhea, and reported abdominal pain and melena. The patient was found on presentation to have macrocytic anemia, thrombocytopenia, abnormal liver function tests with low phosphorus, concerning for probable liver disease. Her CT shows hepatic steatosis without splenomegaly. I suspect that she does have alcoholic cirrhosis given her thrombocytopenia, and AST, ALT elevation, and elevated INR. EGD yesterday showed esophagitis, gastritis, clean- based gastric ulcer in the antrum, gastritis, and duodenitis. No esophageal or gastric varices. Hgb increased without transfusion # GI bleed: 2/2 to PUD, esophagitis: continue pantoprazole 40mg PO BID for 3 months; will need repeat EGD in 3 months; avoid ASA/NSAIDs # PUD: as above # Gastritis/duodenitis: as above # Compensated ETOH cirrhosis: hepatitis panel negative; low NA diet, repeat EGD 3 years for varices screening; US liver q6mo, no encephalopathy # Thrombocytopenia: 2/2 to splenomegaly # Alcoholism: no signs of withdrawal; thiamine, folate, MVI; counseled on ETOH cessation # Anemia of chronic disease: no indication for iron therapy; B12/folate WNL Will follow with you.
[2019-06-28] MEDS: NS + KCL 40 MEQ 1,000 ML IV SCH ×3 (03:09→18:09)
[2019-06-28 07:05] LABS: HEMATOCRIT 27.8 % (37.0-47.0); HEMOGLOBIN 9.2 g/dL (12.0-16.0); MCH 33.8 PG (27-31); MCHC 33.1 g/dL (33-37); MCV 102.2 FL (81-99); MPV 11.7 FL (7.4-10.4); RBC 2.72 XMIL (4.2-5.4); RDW 18.7 % (11.5-14.5); WBC 3.9 X1000 (4.8-10.8)
[2019-06-28 07:22] LABS: AGAP 13; ALBUMIN 3.3 g/dL (3.5-5.0); BUN 5 mg/dL (8-22); CALCIUM 8.1 mg/dL (8.8-10.2); CHLORIDE 107 mmol/L (98-107); COSMO 279; CREATININE 0.5 mg/dL (0.5-0.9); ESTIMATED GFR > 60; GLUCOSE 143 mg/dL (70-104); PHOSPHORUS 3.1 mg/dL (2.7-4.5); POTASSIUM 3.8 mmol/L (3.5-5.1); SODIUM 140 mmol/L (136-145); TCO2 20 mmol/L (25-35)
[2019-06-28] MEDS: PROTONIX PO SCH ×2 (09:07→20:28)
[2019-06-28] MEDS: LIBRIUM PO SCH ×2 (09:07→20:28)
[2019-06-28] MEDS: NEUTRA-PHOS PO SCH ×4 (09:08→20:28)
[2019-06-28] MEDS: M.V.I.-12 10 ML, FOLIC ACID 1 MG, MAGNESIUM SULFATE 1 GM, THIAMINE 100 MG in NS 1,000 ML IV SCH (10:55)
[2019-06-28] MEDS: ROCEPHIN 1 GM in NS 50 ML IV SCH (13:58)
[2019-06-28] MEDS: TYLENOL PO PRN (18:03)
--- NOTE | 2019-06-28 18:12 | GASTROENTEROLOGY PROGRESS NOTE ---
DATE: 06/28/2019 SUBJECTIVE: Patient is resting in bed. She is feeling better. She is able to eat 100% of her meals. She had 2 bowel movements this morning which were liquid and some black and tarry. She denies any nausea, vomiting, vomiting blood. OBJECTIVE: Vital signs: Temperature 99 degrees, pulse rate of 97, respiratory rate of 16, blood pressure 170/78, saturating 97% on room air. Body weight of 173 pounds, BMI 27.1 kg/m2. General appearance: Moderately built, moderately nourished, lying in bed, in no acute distress. HEENT: Mild pallor. Mild icterus. Pupils equal, react to light and accommodation. Neck: Supple. Abdomen: Soft. Mild discomfort in the epigastrium. No rebound. No guarding. Extremities: No cyanosis, clubbing. Neurologic: She is alert, awake, oriented x3. LABS: Hemoglobin and hematocrit are 9.2 and 27.8, white count 3.9, platelet count of 85,000. Sodium 140, potassium 3.8, chloride 107, bicarb 20, anion gap 13, BUN of 5, creatinine 0.5, glucose of 143, calcium is 8.1, total bilirubin is 2.02, AST 196, ALT 70, alkaline phosphatase of 129, total protein is 5.8, albumin of 3.3. Folate of 11.9, B12 808. Urinalysis, positive nitrite. Urine culture showing gram-negative rods. First culture had shown E. coli. Stool for occult blood was positive. IMPRESSION AND PLAN: 1. Gastrointestinal bleed secondary to peptic ulcer disease, esophagitis. Continue Protonix twice daily for 3 months. We will need repeat EGD in 3 months. Avoid aspirin and NSAIDs. 2. Peptic ulcer disease. Continue to follow gastroesophageal reflux lifestyle changes. 3. Gastritis, duodenitis as seen on EGD. Aware. 4. Alcoholic cirrhosis. Hepatitis panel was negative. She will continue a low sodium diet. She will need to have repeat EGD in 3 years for varices screening. She will need an ultrasound every 6 months to evaluate for any kind of hepatoma. Currently she does not have any clinical signs of encephalopathy. 5. Alcoholism. Patient will continue on thiamine, folate, multivitamin. She was counseled on alcohol cessation. 6. Thrombocytopenia, likely secondary to splenomegaly and cirrhosis. Continue to watch for now. She should avoid any NSAIDs. 7. Anemia of chronic disease. Continue to watch and transfuse as needed. 8. Hypertension. Aware. 9. Melena is improving. 10. Ultrasound of the abdomen showed hepatic steatosis and the possibility of solid renal neoplasm in the upper pole of the left kidney cannot be excluded. This will need to be worked up by the Urology team. 11. We will sign off at this time. The patient will follow up in the clinic in 6 weeks after discharge with Dr. Joyce. cc: Lito Johnson MD MTDJose
--- NOTE | 2019-06-28 20:07 | PROGRESS NOTE ---
DATE: 06/28/2019 SUBJECTIVE: This patient is doing better. She is complaining of generalized weakness. Ultrasound showed the possibility of a mass at the level of the upper pole of the left kidney. A solid renal neoplasm cannot be excluded. Also she is having some diarrhea. I will get a C difficile toxin and antigen. For the mass in the left kidney, I will get Urology Department to evaluate this patient. OBJECTIVE: Vital signs: Temperature 98.6 degrees, pulse 100, respiratory rate 18, blood pressure 145/97, oxygen saturation 97% on room air. HEENT: Head normocephalic, no trauma. PERRLA. Neck: Supple. No JVD. No masses. Central trachea. Chest: Clear to auscultation. No wheezing. No rales. Abdomen: Soft, nontender, nondistended. No hepatosplenomegaly. Extremities: No edema, no clubbing, no cyanosis. Neurological Examination: The patient is awake, alert. She is oriented. She has hand tremors, mild, and generalized weakness. LABORATORY DATA: WBC 3.9, hemoglobin 9.2, hematocrit 27.8, platelets 85,000. Sodium 140, potassium 3.8, chloride 107, bicarbonate 20, BUN 5, creatinine 0.5, glucose 143, calcium 8.1, and phosphorus 3.1. ASSESSMENT AND PLAN: 1. Gastrointestinal bleed in a patient with history of melena and coffee-ground emesis. Status post 1 PRBC. She had an endoscopy done 2 days ago that showed multiple erosions and a single gastric ulcer, which was biopsied. Some duodenal inflammation without any bleeding noted. 2. Severe alcohol use and abuse. Continue with same management. She seems to be stable. 3. Mild alcohol withdrawal, improved. 4. Electrolyte imbalance. This is better. 5. Dehydration, improved. 6. Alcohol-induced hepatitis/hepatic steatosis with possible liver cirrhosis. Gastroenterology Department is following this patient and basically they signed off. They will monitor this patient as an outpatient. 7. 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 8. Left kidney mass by ultrasound. I have requested an evaluation by Urology Department. Probably this patient can be seen for the very first time here and then follow up as an outpatient. cc: Trung Whitt MD
[2019-06-28] MEDS: NEURONTIN PO SCH (20:28)
[2019-06-29 07:16] LABS: BASO# 0.03 X1000 (0.0-0.2); BASO% 0.8 % (0.0-0.8); EOS# 0.08 X1000 (0.0-0.7); EOS% 2.2 % (0.0-10.0); HEMATOCRIT 28.7 % (37.0-47.0); HEMOGLOBIN 9.3 g/dL (12.0-16.0); LYMPH# 0.87 X1000 (1.2-3.4); LYMPH% 23.5 % (20.5-51.1); MCH 32.6 PG (27-31); MCHC 32.4 g/dL (33-37); MCV 100.7 FL (81-99); MONO# 0.48 X1000 (0.11-0.59); MPV 11.2 FL (7.4-10.4); NEUT# 2.24 X1000 (1.4-6.5); NEUT% 60.5 % (42.2-75.2); PLT 117 X1000 (130-400); RBC 2.85 XMIL (4.2-5.4); RDW 18.7 % (11.5-14.5)
[2019-06-29 07:38] LABS: AGAP 12; ALB/GLOB RATIO 1.4; ALBUMIN 3.7 g/dL (3.5-5.0); ALKALINE PHOSPHATASE 148 U/L (32-104); BUN 4 mg/dL (8-22); CALCIUM 8.3 mg/dL (8.8-10.2); CHLORIDE 107 mmol/L (98-107); COSMO 275; CREATININE 0.4 mg/dL (0.5-0.9); ESTIMATED GFR > 60; GLUCOSE 116 mg/dL (70-104); GOT 180 U/L (10-30); GPT 113 U/L (10-36); SODIUM 139 mmol/L (136-145); TCO2 20 mmol/L (25-35); TOTAL BILIRUBIN 1.02 mg/dL (0.20-1.00); TOTAL PROTEIN 6.3 g/dL (6.3-8.3)
[2019-06-29] MEDS: PROTONIX PO SCH ×2 (08:35→22:30)
[2019-06-29] MEDS: NEUTRA-PHOS PO SCH ×4 (08:35→22:30)
[2019-06-29] MEDS: NS + KCL 40 MEQ 1,000 ML IV SCH ×3 (08:35→21:00)
[2019-06-29] MEDS: LIBRIUM PO SCH (08:37)
[2019-06-29] MEDS: M.V.I.-12 10 ML, FOLIC ACID 1 MG, MAGNESIUM SULFATE 1 GM, THIAMINE 100 MG in NS 1,000 ML IV SCH (09:34)
[2019-06-29] MEDS: TYLENOL PO PRN (10:30)
--- NOTE | 2019-06-29 12:37 | DISCHARGE SUMMARY ---
ADMISSION DATE: 06/26/2019 DISCHARGE DATE: 06/29/2019 DISCHARGE DIAGNOSES: 1. Gastrointestinal bleed. Esophagogastroduodenoscopy showed multiple erosions and a single gastric ulcer. 2. Multiple gastric erosions and a single gastric ulcer. 3. Duodenal inflammation without bleeding noted. 4. Alcohol use and abuse. 5. Mild alcohol withdrawal, improved. 6. Electrolyte imbalance, better. 7. Dehydration, improved. 8. Alcohol-induced hepatitis/hepatitis steatosis with possible liver cirrhosis. 9. Generalized weakness and physical deconditioning. 10. Left kidney mass by ultrasound. Urology will follow. PROCEDURES PERFORMED: 1. Abdomen and pelvis CT scan dated 06/26/2019 impression: Hepatic steatosis, no evidence of colitis, probably hyperdense cyst in the left upper renal pole. Advise further evaluation with ultrasonography. Other nonacute findings as described. 2. Endoscopic procedure dated 06/26/2019, resolved. Multiple erosions were found in the gastric antrum, gastritis was found in the gastric antrum, single ulcer ranging between 5/9 mm in size was found, biopsies were taken. Duodenal inflammation was found in the duodenal bulb. 3. Abdominal ultrasound dated 06/27/2019 impression: Hepatic steatosis with the possibility of solid renal neoplasm in the upper pole of the left kidney cannot be excluded. 4. Chest x-ray dated 06/27/2019 impression: No evidence of acute disease. CONSULTATION: 1. Gastroenterology Department, Dr. Eduardo Joyce and Dr. Lito Johnson. 2. Urology Department, Dr. Herberth Ford. HOSPITAL COURSE: A 69-year-old female with past medical history of hypertension, depression, attention deficit disorder, and daily alcohol use, admitted on 06/26/2019, reported that for 2 weeks she has been a little bit of a cold and she treated herself with [id number] medications. Then, she started have having nausea and vomiting and diarrhea as well on a daily basis. She reported that over 1 day or so she had brown emesis and started having also black stools. She has been having some epigastric pain that is burning in type, nontender to palpation. She denied fever, chills, but she had some dizziness though, some lightheadedness and weakness as well. No chest pain. No shortness of breath. No urinary frequency or pain, but she reported that she has been having a strong odor to her urine. We have a urine culture x2 that showed Escherichia coli, and she was treated with ceftriaxone during this hospitalization but, like I said, this patient is not having any symptoms, so I will not continue that as an outpatient. She had an endoscopy done that showed multiple erosions in the gastric antrum, gastritis and also a single ulcer ranging between 5/9 mm in size, biopsies were taken. Duodenitis was found in the duodenal bulb as well. They have recommended to continue with a regular diet. Continue with p.o. proton pump inhibitor for 3 months, avoid aspirin and NSAIDs, and of course repeat the EGD in 3 months. Follow up with Dr. Joyce in 6 weeks. This patient is feeling much better. She is getting stronger, but she is still weak, so the decision to send this patient to a rehab center has been made. Upon evaluation, the CT scan and the ultrasound noticed that this patient had an upper pole mass on one of the kidneys. Urology Department has been consulted pending recommendation at this moment. Probably this will be monitored as an outpatient. This patient will be discharged to a rehab center if Urology Department is okay with that. She seems to be stable. She needs to follow up again with Dr. Joyce in 6 weeks, and she needs to repeat an endoscopic exam after that in 3 months. Also she will need to get a new ultrasound, which is going to be likely every 6 months, to evaluate any kind of hepatoma because currently she does not have any signs or symptoms of encephalopathy. PHYSICAL EXAMINATION: Vital Signs: Temperature 97.8 degrees, pulse 87, respiratory rate 20, blood pressure 141/88, oxygen saturation 100% on room air. HEENT: Head normocephalic, no trauma. PERRLA. Neck: Supple. No JVD. No masses. Central trachea. Chest: Clear to auscultation. No wheezing. No rales. Abdomen: Soft, nontender, nondistended. No hepatosplenomegaly. Extremities: No edema, no clubbing, no cyanosis. Neurological examination: The patient is awake, alert. She is oriented. She has some hand tremors which are mild and generalized weakness. LABORATORY: WBC 3.7, hemoglobin 9.3, hematocrit 28.7, platelets 117. Sodium 139, potassium 4, chloride 107, bicarbonate 20. BUN 4, creatinine 0.4, glucose 116, calcium 8.3. Total bilirubin 1.0, AST 180, ALT 113, alkaline phosphatase 148. DISCHARGE MEDICATIONS: Folic acid 1 mg p.o. daily, gabapentin 100 mg p.o. at bedtime, lisinopril/ hydrochlorothiazide 12/12.5 mg p.o. daily, Centrum Silver 1 tablet p.o. daily, pantoprazole 40 mg p.o. b.i.d., and thiamine 100 mg p.o. daily. FOLLOWUP: Follow up with Dr. Joyce in 6 weeks. TIME DISCHARGING THIS PATIENT: 30 minutes. cc: Trung Whitt MD
[2019-06-29] MEDS ORDERED: VANCOCIN PO SCH (14:00)
[2019-06-29] MEDS: ATIVAN IV PRN ×2 (14:24→22:30)
[2019-06-29] MEDS: VANCOCIN PO SCH ×2 (14:25→20:45)
[2019-06-29] MEDS: NEURONTIN PO SCH (22:30)
[2019-06-30] MEDS: VANCOCIN PO SCH ×4 (02:00→22:28)
[2019-06-30 06:45] LABS: BASO# 0.02 X1000 (0.0-0.2); BASO% 0.5 % (0.0-0.8); EOS# 0.08 X1000 (0.0-0.7); EOS% 2.1 % (0.0-10.0); HEMATOCRIT 27.8 % (37.0-47.0); HEMOGLOBIN 8.9 g/dL (12.0-16.0); IMM GRAN# 0.02 X1000 (0.0-0.04); IMM GRAN% 0.5 % (0.0-0.5); LYMPH# 0.79 X1000 (1.2-3.4); LYMPH% 20.7 % (20.5-51.1); MCH 32.4 PG (27-31); MCV 101.1 FL (81-99); MONO# 0.78 X1000 (0.11-0.59); MONO% 20.5 % (1.7-9.3); NEUT# 2.12 X1000 (1.4-6.5); NEUT% 55.7 % (42.2-75.2); PLT 145 X1000 (130-400); RBC 2.75 XMIL (4.2-5.4); RDW 18.7 % (11.5-14.5); WBC 3.81 X1000 (4.8-10.8)
[2019-06-30 06:54] LABS: AGAP 11; BUN 5 mg/dL (8-22); CALCIUM 8.4 mg/dL (8.8-10.2); CHLORIDE 102 mmol/L (98-107); COSMO 272; CREATININE 0.4 mg/dL (0.5-0.9); ESTIMATED GFR > 60; GLUCOSE 115 mg/dL (70-104); SODIUM 137 mmol/L (136-145); TCO2 24 mmol/L (25-35)
[2019-06-30 08:18] LABS: LYMPHS 28 % (21-51); MONO 26 % (1-9); SEGS 40 % (42-75)
--- NOTE | 2019-06-30 08:59 | Diag Imaging Result Doc PS360 ---
EXAM: CHEST-1 VIEW INDICATION: positive sepsis screen TECHNIQUE: One view COMPARISON: 06/27/2019 FINDINGS: There is mild subsegmental atelectasis at the left lung base. The lungs are grossly clear, otherwise. There is no discrete pleural fluid collection or pneumothorax. The cardiomediastinal silhouette and central vasculature are grossly unremarkable. IMPRESSION: Mild left basilar subsegmental atelectasis. No definite acute pathology by plain radiograph, otherwise. Electronically signed by Gucci Sidhu 06/30/2019 8:57 AM
[2019-06-30 09:07] LABS: INR 1.01; PROTIME 13.4 Seconds (11.0-16.0); PTT 26.9 Seconds (22.3-41.8)
--- NOTE | 2019-06-30 10:31 | PROGRESS NOTE ---
DATE: 06/30/2019 SUBJECTIVE: This patient is feeling better, no bowel movements today. Apparently she had just some bowel movement yesterday but more loose than liquids. We have a positive result for Clostridium difficile toxin, and she has been placed on vancomycin p.o. OBJECTIVE: Vital Signs: Temperature 98 degrees, pulse 97, respiratory rate 20, blood pressure 144/96, oxygen saturation 100% on room air. HEENT: Head normocephalic. No trauma. PERRLA. Neck: Supple. No JVD. No masses. Central trachea. Chest: Clear to auscultation. No wheezing. No rales. Abdomen: Soft, nontender, nondistended. No hepatosplenomegaly. Extremities: No edema, no clubbing, no cyanosis. Neurological Examination: The patient is alert. He is oriented x3. No focal deficits. Mild hand tremors. LABORATORY DATA: WBC 3.8, hemoglobin 8.9, hematocrit 27.8, platelets 145,000, sodium 137, potassium 4, chloride 102, bicarbonate 24, BUN 5, creatinine 0.4, glucose 115, calcium 8.4. ASSESSMENT AND PLAN: 1. Gastrointestinal bleed, status post EGD that showed multiple erosions and a single gastric ulcer. Continue with same management. I will continue following the recommendations of Gastroenterology Department. 2. Multiple gastric erosions and single gastric ulcer as above. 3. Duodenal inflammation without bleeding noted. 4. Alcohol abuse and use, continue with same management for now. No signs of withdrawal at this moment. 5. Mild alcohol withdrawal, improved. 6. Electrolyte imbalance, better. 7. Dehydration, resolved. 8. 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 I will continue with daily cessation education. Gastroenterology Department on board. 9. Generalized weakness and physical deconditioning. Continue physical therapy. The plan is to send this patient to a rehab center. 10. Left kidney mass by ultrasound. Urology department evaluated this patient. I do not think we will do something else during this hospitalization. Likely this patient will be evaluated and followed as an outpatient. 11. Clostridium difficile colitis. I have placed this patient on vancomycin since yesterday. The diarrhea seems to be improving. Overall, this patient is doing better. Hopefully at the beginning of the week, I can discharge this patient to a rehab center. cc: Trung Whitt MD
[2019-06-30] MEDS: PROTONIX PO SCH ×2 (11:05→22:28)
[2019-06-30] MEDS: NEUTRA-PHOS PO SCH ×4 (11:05→22:28)
[2019-06-30] MEDS: M.V.I.-12 10 ML, FOLIC ACID 1 MG, MAGNESIUM SULFATE 1 GM, THIAMINE 100 MG in NS 1,000 ML IV SCH (11:05)
[2019-06-30 12:05] LABS: URINE SOURCE CLEAN CATCH
[2019-06-30 12:08] LABS: BILIRUBIN URINE NEGATIVE (NEGATIVE); BLOOD URINE NEGATIVE (NEGATIVE); COLOR STRAW; GLUCOSE URINE NEGATIVE (NEGATIVE); KETONE URINE NEGATIVE (NEGATIVE); LEUKOCYTES URINE NEGATIVE (NEGATIVE); NITRITE URINE NEGATIVE (NEGATIVE); PROTEIN URINE NEGATIVE (NEGATIVE); SP GRAVITY URINE 1.003; TURBIDITY URINE CLEAR (CLEAR); UR EPITHELIAL CELLS <10 /HPF (<10); URINE BACTERIA NEGATIVE /HPF; URINE RBC <10 /HPF (<10); URINE WBC <10 /HPF (<10); UROBILINOGEN URINE NORMAL (NORMAL)
--- NOTE | 2019-06-30 15:12 | CONSULTATION ---
DATE OF CONSULTATION: 06/29/2019 CONSULTING PHYSICIAN: Trung Whitt MD with Hospitalist service. CONSULTATION FOR: Renal mass. HISTORY OF PRESENT ILLNESS: A 69-year-old female who was admitted on 06/26/2019 with nausea, vomiting, and diarrhea, and was found to have GI bleed. She underwent evaluation by sheet turner with EGD and biopsy. She had evaluation with CT of abdomen and pelvis on 06/26/2019, which revealed left upper pole hyperdense cyst. Recommendation was made to obtain ultrasound, which was done on 06/27/2019. It showed that the left upper renal lesion was not necessarily cystic. The patient denies flank pain. She denies history of recurrent UTIs. She denies gross hematuria or dysuria. She denies family history of malignancies. PAST MEDICAL HISTORY: Hypertension, attention deficit disorder, depression. PAST SURGICAL HISTORY: Breast augmentation, arthroscopic knee surgery, total knee arthroplasty. ALLERGIES: No known drug allergies. HOME MEDICATIONS: Lisinopril - hydrochlorothiazide and Ritalin. FAMILY HISTORY: Negative for malignancy. SOCIAL HISTORY: Remote history of smoking. She denies illicit drug use. REVIEW OF SYSTEMS: Reviewed and 12 system negative with exception of the HPI. PHYSICAL EXAMINATION: T 99.2, P 95, BP 132/86. General: Pleasant female in no apparent distress. HEENT: Normocephalic, atraumatic. Cardiovascular: Regular rhythm. Pulmonary: Bilateral breath sounds. Abdomen: Protuberant, nontender to palpation. Back: No CVA tenderness. : Bladder is nontender to palpation. Lymphatic: No groin lymphadenopathy. No axillary lymphadenopathy. Dermatologic: No obvious skin rashes noted. Neurologic: Alert and oriented x3. Psychiatric: Appropriate mood and affect. PERTINENT LABS: White cell count was 4000, hematocrit was 29. Creatinine is 0.4. PERTINENT IMAGES: CT abdomen and pelvis with IV contrast on 06/26/2019 and abdominal ultrasound 06/27/2019 as per HPI. ASSESSMENT AND PLAN: A 69-year-old female with incidental finding of left upper pole hyperdense cyst versus more solid lesion. I personally reviewed CT and ultrasound images. I have discussed with the patient that it appears to me that she has a hyperdense cyst in the left upper pole and ultrasound quality was suboptimal given that there was abdominal and not retroperitoneal. I have discussed with the patient that even in the chance that there was a solid mass in the upper pole of the kidney, it is less than 2 cm and hence she is a good candidate for active surveillance in either case. We discussed the utility of biopsy of the lesion and at this time I advised against that. I have discussed with the patient that if she was comfortable we could observe the lesion for now and I will be happy to see her in 3 months with a renal ultrasound and go from there. We discussed that if the lesion grew in size or if she was not comfortable surveying it, she could benefit from left robotic-assisted laparoscopic partial nephrectomy. The patient states she is comfortable with echo surveillance and voiced understanding that there is a chance to miss therapeutic cure window if this was indeed a regressive cancer. PLAN: 1. Will plan to observe the lesion for now. 2. I will be happy to see her in outpatient basis in 3 months with a renal ultrasound and proceed from there. 3. Thank you for the consultation, please call with any questions. cc: Herberth Ford MD
[2019-06-30] MEDS: NS + KCL 40 MEQ 1,000 ML IV SCH (15:36)
[2019-06-30] MEDS ORDERED: LIBRIUM PO ONE (16:13)
[2019-06-30] MEDS: NEURONTIN PO SCH (22:28)
[2019-06-30] MEDS: TYLENOL PO PRN (22:43)
[2019-07-01] MEDS: VANCOCIN PO SCH ×4 (02:30→23:48)
[2019-07-01] MEDS: NS + KCL 40 MEQ 1,000 ML IV SCH ×2 (05:01→17:35)
[2019-07-01] MEDS: PROTONIX PO SCH ×2 (09:32→23:48)
[2019-07-01] MEDS: M.V.I.-12 10 ML, FOLIC ACID 1 MG, MAGNESIUM SULFATE 1 GM, THIAMINE 100 MG in NS 1,000 ML IV SCH (09:32)
[2019-07-01] MEDS: NEUTRA-PHOS PO SCH ×4 (09:32→23:48)
[2019-07-01] MEDS: TYLENOL PO PRN ×2 (12:53→18:52)
--- NOTE | 2019-07-01 13:59 | PROGRESS NOTE ---
DATE: 07/01/2019 SUBJECTIVE: No changes compared with yesterday. Diarrhea improved. Continue with the same management. OBJECTIVE: Vital Signs: Temperature 99.2 degrees, pulse 92, respiratory rate 20, blood pressure 149/89, oxygen saturation 100% on room air. HEENT: Head normocephalic. No trauma. PERRLA. Neck: Supple. No JVD. No masses. Central trachea. Chest: Clear to auscultation. No wheezing. No rales. Abdomen: Soft, nontender, nondistended. No hepatosplenomegaly. Extremities: No edema, no clubbing, no cyanosis. Neurological Examination: The patient is alert. She is oriented x3. No focal deficits. Laboratory: WBC 3.8, hemoglobin 8.9, hematocrit 27.8, platelets 145,000. Sodium 137, potassium 4, chloride 102, bicarbonate 24, BUN 5, creatinine 0.4, glucose 115, calcium 8.4. ASSESSMENT AND PLAN: 1. Gastrointestinal bleed, status post esophagogastroduodenoscopy that showed multiple erosions and a single gastric ulcer. Continue with the same management. We will continue following the recommendations of the gastroenterology department. 2. Multiple gastric erosions and a simple gastric ulcer, as above. 3. Duodenal inflammation without bleeding, noted. 4. Alcohol use and abuse. Continue with the same management for now. No signs of withdrawal at this moment. 5. Mild alcohol withdrawal at the beginning of this hospitalization, improved. 6. Electrolyte imbalance, improved. 7. Dehydration, resolved. 8. Alcohol-induced hepatitis, possible liver cirrhosis. Aware. Patient has been highly advised against alcohol use. I will continue with daily cessation education. Gastroenterology department has been evaluating this patient already. 9. Generalized weakness and physical deconditioning. Continue physical therapy. The plan is to send this patient to a rehab center. 10. Left kidney mass by ultrasound, already evaluated by urology department and they will monitor this as an outpatient. 11. Clostridium difficile colitis. Continue vancomycin by mouth. She seems to be improving. 12. This patient seems to be doing better, I do believe she can be discharged pending rehab center placement at this moment. cc: Trung Whitt MD
[2019-07-01] MEDS: NEURONTIN PO SCH (23:48)
[2019-07-02] MEDS: ATIVAN IV PRN (00:03)
[2019-07-02] MEDS: VANCOCIN PO SCH ×3 (05:35→14:41)
[2019-07-02 07:25] LABS: AGAP 11; BUN 6 mg/dL (8-22); CALCIUM 7.7 mg/dL (8.8-10.2); CHLORIDE 107 mmol/L (98-107); COSMO 278; CREATININE 0.4 mg/dL (0.5-0.9); ESTIMATED GFR > 60; GLUCOSE 114 mg/dL (70-104); POTASSIUM 4.4 mmol/L (3.5-5.1); SODIUM 140 mmol/L (136-145); TCO2 22 mmol/L (25-35)
[2019-07-02] MEDS ORDERED: AMBIEN PO PRN (07:32)
[2019-07-02] MEDS: NS + KCL 40 MEQ 1,000 ML IV SCH (07:40)
--- NOTE | 2019-07-02 07:55 | PROGRESS NOTE ---
DATE: 07/02/2019 SUBJECTIVE: No changes compared with yesterday. The diarrhea has been improving, just a couple small BMs. Continue with the same management. OBJECTIVE: Vital Signs: Temperature 98.2 degrees, pulse 78, respiratory rate 20, blood pressure 132/85, oxygen saturation 100% on room air. HEENT: Head normocephalic. No trauma. PERRLA. Neck: Supple. No JVD. No masses. Central trachea. Chest: Clear to auscultation. No wheezing. No rales. Abdomen: Soft, nontender, nondistended. No hepatosplenomegaly. Extremities: No edema, no clubbing, no cyanosis. Neurological: The patient is alert. She is oriented x3. No focal deficits. LABORATORY DATA: Sodium 140, potassium 4.4, chloride 107, bicarbonate 22, BUN 6, creatinine 0.4, glucose 114, calcium 7.7. ASSESSMENT AND PLAN: 1. Gastrointestinal bleed, status post esophagogastroduodenoscopy that showed multiple erosions and a single gastric ulcer. Continue with the same management. Will continue following the recommendations of Gastroenterology Department. Stable. 2. Multiple gastric erosions and single gastric ulcer as above. 3. Duodenitis without bleeding. Noted. 4. Alcohol use and abuse. Continue with the same management for now. No signs of withdrawal at this moment. 5. Mild alcohol withdrawal at the beginning of this hospitalization, improved. 6. Electrolyte imbalance, improved. 7. Dehydration, resolved. 8. Alcohol-induced hepatitis with possible liver cirrhosis. Aware. She will need to follow this up with guard manager as an outpatient. 9. Generalized weakness and physical deconditioning. Continue physical therapy. The plan is to send this patient to a rehab center. 10. Left kidney mass by ultrasound. Already evaluated by Urology Department, which will monitor as an outpatient. Aware. 11. Clostridium difficile colitis. Continue vancomycin by mouth. She seems to be getting better. cc: Trung Whitt MD
[2019-07-02 08:45] VITALS: BP 156/92
[2019-07-02] MEDS: PROTONIX PO SCH (09:06)
[2019-07-02] MEDS: M.V.I.-12 10 ML, FOLIC ACID 1 MG, MAGNESIUM SULFATE 1 GM, THIAMINE 100 MG in NS 1,000 ML IV SCH (09:07)
[2019-07-02] MEDS: NEUTRA-PHOS PO SCH ×2 (09:07→14:42)
--- NOTE | 2019-07-02 10:26 | DISCHARGE SUMMARY ---
ADMISSION DATE: 06/26/2019 DISCHARGE DATE: DISCHARGE DIAGNOSES: 1. Gastrointestinal bleed. Esophagogastroduodenoscopy showed multiple erosions and a single gastric ulcer. 2. Multiple gastric erosions and a single gastric ulcer. 3. Duodenitis without bleeding. 4. Alcohol use and abuse. 5. Mild alcohol withdrawal, improved. 6. Electrolyte imbalance, improved. 7. Dehydration, resolved. 8. Alcohol-induced hepatitis, hepatic steatosis with possible liver cirrhosis. 9. Generalized weakness and physical deconditioning. 10. Left kidney mass by ultrasound. 11. C. Difficile colitis, currently getting treatment. PROCEDURES PERFORMED: 1. Abdomen and pelvis CT scan dated 06/26/2019. Impression: Hepatic steatosis. No evidence of colitis. Probably hyperdense cyst in the left upper renal pole, endoscopic. Procedure: 06/26/2019. Multiple erosions were found in the epigastric antrum. Gastritis was found in the gastric antrum, single ulcer ranging between 5 to 10 mm in size was found. Biopsies were taken. Duodenal inflammation was found in the duodenal bulb. 2. Abdominal ultrasound dated 06/27/2019: Impression: Hepatic steatosis with the possibility of solid renal neoplasm in the upper pole of the left kidney cannot be excluded. 3. Chest x-ray dated 06/27/2019: Impression: No evidence of acute disease. CONSULTATIONS: 1. Gastroenterology Department Dr. Eduardo Joyce/Dr. Lito Johnson. 2. Urology Department Dr. Herberth Ford. HOSPITAL COURSE: A 69-year-old female with a past medical history of hypertension, depression, attention deficit disorder, and daily alcohol use admitted on 06/26/2019. Reported that for 2 weeks she has been having a little bit of cold, and treated herself with over-the- counter medication. Then, she started having nausea, vomiting and diarrhea on a daily basis. She reported also brown emesis and black stools. She has been having some epigastric pain that is burning in time, not tender to palpation. She denies fever or chills, but she had some dizziness, some lightheadedness and weakness as well. No chest pain or shortness of breath. No urinary frequency or pain, but she reported that she has been having a strong odor to her urine. We have a urine culture x2 that showed Escherichia coli, and she was treated with ceftriaxone during a short period of her hospitalization. Since this patient has not been having any kind of symptoms, it was stopped. She had an endoscopic exam done that showed multiple erosions in the gastric antrum, gastritis, and also a single ulcer ranging between 5 to 9 mm in size. Biopsies were taken. Duodenitis was found in the duodenal bulb as well. They recommended to continue with regular diet. Continue with p.o. Protonix for 3 months, avoid aspirin and NSAIDs, and of course repeat an EGD in 3 months. Follow up with Dr. Joyce in 6 weeks. The patient is feeling better. She is getting stronger, but she is still weak. She will be discharged to a rehab center. Upon evaluation, CT scan and the ultrasound noticed that this patient had an upper pole mass on one of the kidneys. Urology Department already has been consulted, and they will monitor this as an outpatient. Also, she has been having diarrhea lately. We did a C. Difficile toxin and antigen, and the toxin was positive so we started treating this patient for C. Difficile colitis. She will be treated for 10 days. Currently, she is not having any symptoms. She is not encephalopathic. She is having just mild diarrhea, a small amount x2 yesterday. She will go to a rehab center today. PHYSICAL EXAMINATION: Vital Signs: Temperature 98.2 degrees, pulse 78, respiratory rate 20, blood pressure 132/85 and oxygen saturation 100% on room air. HEENT: Head normocephalic. No trauma. PERRLA. Neck: Supple. No JVD. No masses. Central trachea. Chest: Clear to auscultation. No wheezing. No rales. Abdomen: Soft, nontender, and nondistended. No hepatosplenomegaly. Extremities: No edema. No clubbing. No cyanosis. Neurological: The patient is alert and oriented x3. No focal deficits. LABORATORY: Sodium 140, potassium 4.4, chloride 107, bicarbonate 22, BUN 6, creatinine 0.4 glucose 114, and calcium 7.7. DISCHARGE MEDICATIONS: 1. Acetaminophen 650 mg p.o. q.6 hours. 2. Folic Acid 1 mg p.o. daily. 3. Gabapentin 100 mg p.o. at bedtime. 4. Lisinopril/hydrochlorothiazide 1 tablet p.o. daily. 5. Melatonin 6 mg p.o. at bedtime. 6. Centrum Silver 1 tablet p.o. daily. 7. Pantoprazole 40 mg p.o. b.i.d. 8. Thiamine 100 mg p.o. daily. 9. Vancomycin p.o. 125 mg p.o. q.6 hours to complete 10 days. 10. Zolpidem 5 mg p.o. at bedtime as needed for insomnia. TIME SPENT: Time discharging this patient 35 minutes. cc: Trung Whitt MD
[2019-07-02] MEDS ORDERED: MELATONIN PO SCH (21:00)
== END 2019-07-02 15:28 | DRG 391 ==
LOC: SUPCPDRO → ED 01:56 → 4N 05:53 → SUATTDRO 05:53 → 4N 06-29 13:13
PROVIDERS: ATTEND Internal Medicine

== ENCOUNTER 2019-10-30 23:38 | Inpatient (IN) ==
--- NOTE | 2019-10-31 00:26 | PROVIDER DOCUMENTATION ---
HPI-Abdominal Pain/GI Problem - General Chief Complaint: N/V/D Stated Complaint: n/v/d Time Seen by Provider: 10/31/19 00:00 Source: patient Allergies/Adverse Reactions: Patient Allergies Allergy/AdvReac Type Severity Reaction Status Date / Time No Known Allergies Allergy Verified 02/23/18 10:38 Home Medications: Home Medication List Medication Instructions Recorded Confirmed Last Taken Type Bupropion HCl [Wellbutrin Xl] 300 mg PO DAILY 11/01/19 11/01/19 Unknown History Gabapentin [Neurontin] 300 mg PO QHS 11/01/19 11/01/19 Unknown History Baclofen 10 mg PO TID #21 tab 11/06/19 Unknown Rx Iron Carbonyl/Ascorbic Acid 1 ea PO BID #60 tab 11/06/19 Unknown Rx [Icar-C] Lactulose 30 ml PO BID PRN PRN #60 udc 11/06/19 Unknown Rx Levofloxacin [Levaquin] 750 mg PO DAILY #7 tab 11/06/19 Unknown Rx Methylphenidate HCl [Ritalin] 20 mg PO TID #90 tab 11/06/19 Unknown Rx Multivitamins/Minerals [Centrum 1 ea PO DAILY tab 11/06/19 Unknown Rx Silver] Tramadol [Ultram] 50 mg PO Q6H PRN PRN #30 tab 11/06/19 Unknown Rx - History of Present Illness-ABD Nature of Presenting Problems: 69 YO F with abd pain x 1 week with associated n/v/diarrhea. Pt states she fell after a syncopal episode 1 week ago and has bruising to her face because of it. Denies any urinary complaints at this time. Abdominal Pain Onset Location: reports: generalized abdomen Onset/Duration: reports: 1 week ago Timing: reports: still present, constant Activities at Onset: reports: none Exposure to sick contacts?: No Last BM: this evening Dark Stools Present?: reports: none noticed Review of Systems - Adult - REVIEW OF SYSTEMS - ADULT Constitutional: denies: chills, fever Eyes: denies: blurred vision, double vision Ears, Nose, Mouth & Throat: reports: no symptoms reported Cardiovascular: reports: no symptoms reported. denies: palpitations Respiratory: denies: cough Gastrointestinal: reports: see HPI, abdominal pain, diarrhea, nausea, vomiting Genitourinary: reports: no symptoms reported Musculoskeletal: reports: no symptoms reported Integumentary: reports: other (bruising) Neurological: reports: no symptoms reported Past History - Adult - PAST MEDICAL HISTORY-ADULT Review of Records: reports: Old Records Reviewed, Medications Reviewed, Social history reviewed & non-contributory. Major Childhood Illnesses: reports: denies history Cardiovascular: reports: HTN Respiratory: reports: denies history Gastrointestinal: reports: denies history Obstetrical/Gynecological: reports: denies history Genitourinary: reports: denies history Musculoskeletal: reports: denies history Neurological: reports: denies history Psychiatric: reports: denies history Endocrine/Immune: reports: denies history Other Conditions: reports: denies history - PRIOR SURGERIES/PROCEDURES Surgical/Procedure History: denies: recent surgery - FAMILY HISTORY Family History: reviewed, not pertinent - SOCIAL HISTORY Smoking: denies Substance Use: denies Living Situation: alone Physical Exam-General - PHYSICAL EXAM-ADULT Initial Vital Signs Reviewed: Yes - CONSTITUTIONAL General Appearance: alert, mild distress (from pain) - EYES Eyes: PERRL/EOMI, pink conjunctivae, other (racoon eyes with extravation down cheeks b/l) - NECK Neck: full range of motion - RESPIRATORY Respiratory: lungs clear, normal breath sounds, no pleuratic chest pain - CARDIOVASCULAR Cardiovascular: regular rate, rhythm, no edema - GASTROINTESTINAL (ABDOMEN) Abdominal Exam: guarding, tenderness (diffuse). negative: distended - MUSCULOSKELETAL Back Exam: no CVA tenderness Extremity: normal range of motion, normal inspection - SKIN Integumentary: ecchymosis (extensive on face) - NEUROLOGIC Neurologic: grossly normal - PSYCHIATRIC Psych/Mental Status: normal mood/affect, oriented x 3 Progress - PLAN OF CARE/RESULTS Progress/Plan/Lab Results: Vital Signs - 8 hr 10/30/19 23:55 Temperature 98.0 F Pulse Rate 80 Respiratory Rate 20 Blood Pressure 110/71 O2 Sat by Pulse Oximetry 96 Orders Category Date Time Status NPO Diet 10/31/19 00:[address] ABDOMEN/PELVIS W/O CONTRAST [CT] Stat Exams 10/31/19 00:18 Ordered CBC WITH ELECTRONIC DIFF [HEME] Stat Lab 10/31/19 00:17 Uncollected COMPREHENSIVE METABOLIC PANEL [CHEM] Stat Lab 10/31/19 00:17 Uncollected LIPASE [CHEM] Stat Lab 10/31/19 00:17 Uncollected TSH Stat Lab 10/31/19 00:17 Uncollected URINALYSIS W/POSS RFLX CULT [URINALYSIS] Stat Lab 10/31/19 00:17 Uncollected Result Diagrams: 11/06/19 05:55 11/06/19 05:55 - CONSULTS/PCP/HOSPITALIST Notification #1 *Consult/PCP/Hospitalist*: Dr. Edge Time Discussed: 02:38 Consult Disposition: Will see in ED Departure - Departure Date of Disposition Decision: 10/31/19 Time of Disposition Decision: 02:38 DIAGNOSIS: Vomiting, Nausea, Ileus, Pyelonephritis, Hyponatremia, Hypokalemia, Transaminitis Disposition: ADMITTED INPATIENT 09 Certified Medical Emergency: Emergent Condition: Stable - Critical Care Note This patient required my direct & personal management of CC.: No Attestation - Physician/ HUMAIRA Attestation Patient care was provided by Advanced Practice Provider:: No The physician spent face to face time with patient:: Yes Advanced Practice Provider documentation review:: Supervising physician onsite and consulted in the evaluation and care of this patient. The physician did have a face to face encounter with the patient.
[2019-10-31] MEDS ORDERED: NS 1,000 ML IV ONE (01:29)
[2019-10-31] MEDS ORDERED: MORPHINE IV ONE (01:29)
[2019-10-31 01:56] LABS: BASO# 0.01 X1000 (0.0-0.2); BASO% 0.2 % (0.0-0.8); HEMATOCRIT 33.7 % (37.0-47.0); HEMOGLOBIN 12.1 g/dL (12.0-16.0); LYMPH# 1.03 X1000 (1.2-3.4); LYMPH% 18.9 % (20.5-51.1); MCH 33.7 PG (27-31); MCHC 35.9 g/dL (33-37); MCV 93.9 FL (81-99); MONO# 0.86 X1000 (0.11-0.59); MONO% 15.8 % (1.7-9.3); MPV 10.8 FL (7.4-10.4); NEUT# 3.54 X1000 (1.4-6.5); NEUT% 65.1 % (42.2-75.2); PLT 110 X1000 (130-400); RBC 3.59 XMIL (4.2-5.4); RDW 15.4 % (11.5-14.5); WBC 5.44 X1000 (4.8-10.8)
[2019-10-31 02:05] LABS: URINE SOURCE CLEAN CATCH
[2019-10-31 02:13] LABS: URINE EPITHELIAL CELLS >10 /HPF (<10); URINE RBC <10 /HPF (<10); URINE WBC <10 /HPF (<10)
[2019-10-31 02:36] LABS: AGAP 24; ALB/GLOB RATIO 1.1; ALBUMIN 3.2 g/dL (3.5-5.0); ALKALINE PHOSPHATASE 282 U/L (32-104); BUN 4 mg/dL (8-22); CALCIUM 8.1 mg/dL (8.8-10.2); CHLORIDE 70 mmol/L (98-107); COSMO 222; CREATININE 0.4 mg/dL (0.5-0.9); ESTIMATED GFR > 60; GLUCOSE 94 mg/dL (70-104); GOT 199 U/L (10-30); GPT 129 U/L (10-36); LIPASE 45 U/L (13-60); TCO2 17 mmol/L (25-35); TOTAL BILIRUBIN 7.96 mg/dL (0.20-1.00); TOTAL PROTEIN 6.2 g/dL (6.3-8.3)
[2019-10-31 02:40] LABS: SODIUM 108 mmol/L (136-145)
[2019-10-31] MEDS ORDERED: NS 1,000 ML IV SCH (02:45)
[2019-10-31 02:51] LABS: BILIRUBIN URINE SMALL (NEGATIVE); BLOOD URINE NEGATIVE (NEGATIVE); CLARITY CLEAR (CLEAR); COLOR YELLOW; GLUCOSE URINE NEGATIVE (NEGATIVE); KETONE URINE 40 mg/dL (NEGATIVE); LEUKOCYTES URINE TRACE (NEGATIVE); NITRITE URINE NEGATIVE (NEGATIVE); PROTEIN URINE TRACE mg/dL (NEGATIVE); UROBILINOGEN URINE 0.2 EU/dL (0.2-1.0)
--- NOTE | 2019-10-31 06:46 | Diag Imaging Result Doc PS360 ---
CT ABDOMEN/PELVIS W/O CONTRAST - 10/31/2019 INDICATION: nausea and vomiting COMPARISON: 06/26/2019 FINDINGS: The lung bases are clear and the heart size is normal. There is a small hiatal hernia. There is marked fatty change of the liver stable from prior. No liver masses or biliary dilation. There is some faint perinephric stranding around the right kidney. No radiodense renal stones. No hydronephrosis or hydroureter. No bowel obstruction or inflammation. Normal appendix. Mild diverticulosis of the sigmoid colon. Urinary bladder, uterus, and rectum are normal. There are advanced degenerative changes of the left hip and spine. No acute or suspicious bony lesion. IMPRESSION: 1. Marked hepatic steatosis. Similar to prior. 2. Faint perinephric stranding around the right kidney suggests pyelonephritis. Correlate clinically. 3. Mild diverticulosis coli. This exam was performed using automated exposure control, adjustment of mA or kV according to patient size, and/or use of iterative reconstruction technique Electronically signed by Negro Yoder 10/31/2019 6:44 AM
[2019-10-31 08:36] LABS: BASO# 0.01 X1000 (0.0-0.2); BASO% 0.2 % (0.0-0.8); HEMATOCRIT 34.6 % (37.0-47.0); HEMOGLOBIN 12.6 g/dL (12.0-16.0); IMM GRAN# 0.02 X1000 (0.0-0.04); IMM GRAN% 0.3 % (0.0-0.5); LYMPH# 1.49 X1000 (1.2-3.4); LYMPH% 22.9 % (20.5-51.1); MCH 34.8 PG (27-31); MCHC 36.4 g/dL (33-37); MCV 95.6 FL (81-99); MONO# 1.03 X1000 (0.11-0.59); MONO% 15.8 % (1.7-9.3); MPV 10.9 FL (7.4-10.4); NEUT# 3.95 X1000 (1.4-6.5); NEUT% 60.8 % (42.2-75.2); PLT 111 X1000 (130-400); RBC 3.62 XMIL (4.2-5.4); RDW 15.5 % (11.5-14.5)
--- NOTE | 2019-10-31 08:44 | Diag Imaging Result Doc PS360 ---
CT HEAD/C-SPINE W/O CONTRAST - 10/31/2019 INDICATION: Fall,Hitting the back of her head,neck pain COMPARISON: None FINDINGS: Head CT: There is some minimal periventricular white matter chronic microvascular ischemia. No intracranial mass or hemorrhage. The skull is intact. The sinuses, mastoids, and middle ears are clear. Cervical spine: There is reversal of the normal cervical lordosis. Vertebral body heights are preserved. No subluxation. There is severe multilevel degenerative disc disease with narrowing, irregularity, sclerosis, and osteophyte formation. This involves all the disc spaces from C3-C7. No significant central canal stenosis. IMPRESSION: No acute injury. This exam was performed using automated exposure control, adjustment of mA or kV according to patient size, and/or use of iterative reconstruction technique Electronically signed by Negro Yoder 10/31/2019 8:44 AM
--- NOTE | 2019-10-31 08:46 | Diag Imaging Result Doc PS360 ---
CT MAXILLOFACIAL(SINUS) W/O CO - 10/31/2019 INDICATION: Fall,Facial Injury,swelling,bruising TECHNIQUE: COMPARISON: None FINDINGS: No facial bone fracture or dislocation. There is degeneration of the right temporal mandibular joints. The sinuses are all clear. Soft tissues are clear. IMPRESSION: No acute injury. 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 Electronically signed by Negro Yoder 10/31/2019 8:46 AM
--- NOTE | 2019-10-31 08:51 | Diag Imaging Result Doc PS360 ---
EXAM: CHEST-PORTABLE INDICATION: dyspnea,cough TECHNIQUE: One view COMPARISON: 06/30/2019 FINDINGS: The lungs are grossly clear. There is no discrete pleural fluid collection or pneumothorax. The cardiomediastinal silhouette and central vasculature are grossly unremarkable. IMPRESSION: No evidence of acute pathology by plain radiograph. Electronically signed by Gucci Sidhu 10/31/2019 8:52 AM
[2019-10-31 09:09] LABS: AGAP 21; ALB/GLOB RATIO 1.2; ALBUMIN 3.6 g/dL (3.5-5.0); ALKALINE PHOSPHATASE 316 U/L (32-104); BUN 5 mg/dL (8-22); CALCIUM 8.6 mg/dL (8.8-10.2); CHLORIDE 71 mmol/L (98-107); CK PROFILE 432 U/L (24-173); COSMO 223; CREATININE 0.4 mg/dL (0.5-0.9); ESTIMATED GFR > 60; GLUCOSE 98 mg/dL (70-104); GOT 219 U/L (10-30); GPT 140 U/L (10-36); INR 1.15; MAGNESIUM 1.8 mg/dL (1.5-2.7); POTASSIUM 3.3 mmol/L (3.5-5.1); PROTIME 14.9 Seconds (11.0-16.0); TCO2 19 mmol/L (25-35); TOTAL BILIRUBIN 9.72 mg/dL (0.20-1.00); TOTAL PROTEIN 6.5 g/dL (6.3-8.3)
[2019-10-31 09:10] LABS: PTT 30.9 Seconds (22.3-41.8)
[2019-10-31 09:36] LABS: SODIUM 111 mmol/L (136-145)
[2019-10-31 09:46] LABS: CK INDEX 1.1 (0.0-2.5); CK-MB 4.68 ng/mL (0.0-5.0)
[2019-10-31 09:46] LABS: UR AMPHETAMINES QUAL NONE DETECTED (NONE DETECT); UR BARBITUATES QUAL NONE DETECTED (NONE DETECT); UR BENZODIAZEPIN QUAL NONE DETECTED (NONE DETECT); UR CANNABINOIDS QUAL NONE DETECTED (NONE DETECT); UR COCAINE QUAL NONE DETECTED (NONE DETECT); UR METHADONE QUAL NONE DETECTED (NONE DETECT); UR OPIATES QUAL NONE DETECTED (NONE DETECT); UR OXYCODONE QUAL NONE DETECTED (NONE DETECT); UR PCP QUAL NONE DETECTED (NONE DETECT)
[2019-10-31] MEDS ORDERED: POTASSIUM CHLORIDE 40 MEQ/SWI 40 MEQ/100 ML IVPB IV ONE (10:08)
[2019-10-31] MEDS: MORPHINE IV PRN ×3 (10:12→22:40)
[2019-10-31] MEDS: ZOFRAN IV PRN ×2 (10:12→14:41)
[2019-10-31] MEDS: NS 1,000 ML IV SCH ×3 (10:15→20:15)
--- NOTE | 2019-10-31 10:34 | EKG Report ---
Test Performed on : 10/31/2019 10:30:44 AM Test Reason : cp Blood Pressure : / mmHG Vent. Rate : 083 BPM Atrial Rate : 083 BPM P-R Int : 148 ms QRS Dur : 086 ms QT Int : 394 ms P-R-T Axes : 043 007 020 degrees QTc Int : 462 ms Normal sinus rhythm. Normal ECG When compared with ECG of 26-JUN-2019 06:10, fusion complexes are no longer present premature ventricular complexes. are no longer present T wave inversion no longer evident in Lateral leads Confirmed by Shamir TORO, Hay Baxter ([id number]) on 11/01/2019 12:23:08 PM
--- NOTE | 2019-10-31 13:07 | Diag Imaging Result Doc PS360 ---
US ABDOMEN-COMPLETE - 10/31/2019 INDICATION: abnormal LFT COMPARISON: 10/31/2019 FINDINGS: There is severe, diffuse fatty change of the liver. There is a small left renal cyst superiorly measuring 1.7 cm. There is some layering, echogenic material within the gallbladder consistent with sludge. No shadowing stones. No gallbladder distention or free fluid. Common bile duct measures 3 mm. The pancreas is obscured. The spleen and right kidney are normal. Aorta, IVC, and main portal vein are patent. Spleen size is 10.4 cm. IMPRESSION: 1. Severe fatty change of the liver. 2. Significant sludge in the gallbladder. 3. Tiny left renal cyst. Electronically signed by Negro Yoder 10/31/2019 1:06 PM
[2019-10-31] MEDS: ROCEPHIN 1 GM in NS 50 ML IV SCH (14:26)
[2019-10-31 15:12] LABS: AGAP 16; ALBUMIN 3.2 g/dL (3.5-5.0); BUN 8 mg/dL (8-22); CALCIUM 8.2 mg/dL (8.8-10.2); CHLORIDE 76 mmol/L (98-107); COSMO 228; CREATININE 0.6 mg/dL (0.5-0.9); ESTIMATED GFR > 60; GLUCOSE 136 mg/dL (70-104); PHOSPHORUS 2.1 mg/dL (2.7-4.5); POTASSIUM 3.8 mmol/L (3.5-5.1); SODIUM 112 mmol/L (136-145); TCO2 20 mmol/L (25-35)
[2019-10-31] MEDS: PROTONIX IV SCH (20:11)
[2019-11-01] MEDS: MORPHINE IV PRN ×4 (02:42→15:50)
[2019-11-01 06:04] LABS: BASO# 0.01 X1000 (0.0-0.2); BASO% 0.2 % (0.0-0.8); EOS# 0.01 X1000 (0.0-0.7); EOS% 0.2 % (0.0-10.0); HEMOGLOBIN 11.3 g/dL (12.0-16.0); IMM GRAN# 0.02 X1000 (0.0-0.04); IMM GRAN% 0.4 % (0.0-0.5); LYMPH# 0.67 X1000 (1.2-3.4); LYMPH% 13.6 % (20.5-51.1); MCH 34.6 PG (27-31); MCHC 35.3 g/dL (33-37); MCV 97.9 FL (81-99); MONO# 0.67 X1000 (0.11-0.59); MONO% 13.6 % (1.7-9.3); MPV 11.5 FL (7.4-10.4); NEUT# 3.54 X1000 (1.4-6.5); PLT 106 X1000 (130-400); RBC 3.27 XMIL (4.2-5.4); RDW 15.4 % (11.5-14.5); WBC 4.92 X1000 (4.8-10.8)
[2019-11-01 06:10] LABS: INR 1.18; PROTIME 15.2 Seconds (11.0-16.0)
[2019-11-01 06:43] LABS: ESTIMATED GFR > 60
[2019-11-01 06:47] LABS: AGAP 16; ALB/GLOB RATIO 1.2; ALBUMIN 3.3 g/dL (3.5-5.0); ALKALINE PHOSPHATASE 261 U/L (32-104); BUN 8 mg/dL (8-22); CALCIUM 8.7 mg/dL (8.8-10.2); CHLORIDE 82 mmol/L (98-107); COSMO 242; CREATININE 0.5 mg/dL (0.5-0.9); GLUCOSE 126 mg/dL (70-104); GOT 210 U/L (10-30); GPT 129 U/L (10-36); POTASSIUM 3.3 mmol/L (3.5-5.1); SODIUM 120 mmol/L (136-145); TCO2 22 mmol/L (25-35); TOTAL BILIRUBIN 11.05 mg/dL (0.20-1.00); TOTAL PROTEIN 6.1 g/dL (6.3-8.3)
[2019-11-01] MEDS: NS 1,000 ML IV SCH ×2 (07:09→15:15)
[2019-11-01] MEDS: ROCEPHIN 1 GM in NS 50 ML IV SCH (10:23)
[2019-11-01] MEDS: WELLBUTRIN XL PO SCH (10:23)
--- NOTE | 2019-11-01 11:43 | HISTORY AND PHYSICAL ---
PRIMARY CARE PROVIDER: LEA Lee. DATE AND TIME: 10/31/2019 at 0730. CHIEF COMPLAINT: Abdominal pain x1 week with nausea, vomiting, diarrhea. HISTORY OF PRESENT ILLNESS: The patient presented to the ER with complaints of nausea, vomiting, and diarrhea that has been ongoing for a few weeks now. She also complains of abdominal pain. The patient reports the abdominal pain is in the periumbilical and just inferior to her umbilical area. She reports it is a crampy, achy type pain that is constant. She was tender upon palpation in her abdomen. She denies any hematemesis, hematochezia or melena. The patient does report she has a history of having C difficile in the past. She does report that she has fallen at home. She reports she fell once a week or so ago and did injure her face. She does have bruising and swelling noted to her face as well. She also states she fell yesterday, hitting the back of her head. She states that she has been having neck pain since her initial fall 1 to 2 weeks ago. She is reporting some dizziness. She denies any chest pain, shortness of breath, she denies any cough. She is denying any dysuria or urinary frequency. She denies any other pain, numbness, tingling, or swelling in extremities. The patient, though she is alert and oriented to person, place, time, and situation, at times she does seem to be very a restless and did have to keep being reminded in the room why she had a monitor on and why we were doing certain things to try to help take care of her. The patient does state that she has a history of alcohol abuse though she reports since her last admission in June 2019, that she had not drank any alcohol up until yesterday and she stated that her abdomen was hurting so bad that she drank some wine to try to help this. Upon my evaluation of the patient in the emergency department, I did walk into the room to immediately notice that the patient had quite a bit of bruising and swelling noted to her face, all across her forehead and in the occipital area bilaterally as well as in her cheek area bilaterally. She did have obvious jaundice noted as well. As mentioned above, upon further discussing with the patient, she did report that she had fallen and injured her face a week or so ago and had fallen again yesterday and hit the back of her head. She has been reporting neck pain since her initial fall. I did go ahead and order a CT head and C-spine as well as a maxillofacial CT as well without contrast to rule out any injury. These CT studies were all negative for any acute injury or abnormalities. Given her nausea, vomiting, and concern that with her falls and other presenting symptoms, I did perform a chest x-ray just to rule out possible aspiration or injury. In the ER, chest x-ray was negative for any acute abnormalities. Earlier in the ER upon the ER physician's evaluation, she was noted to have some trace white blood cells noted in her urine though the patient was not reporting any urinary symptoms. Given her nausea, vomiting and diarrhea and history of C difficile, they did perform a CT abdomen and pelvis without contrast which did show marked hepatosteatosis, faint perinephric stranding around the right kidney suggests pyelonephritis though to correlate clinically, and some mild diverticulosis coli. In the ER, she was found to have also a critical sodium level of 108. She does not have any leukocytosis, she has been afebrile, hemoglobin and hematocrit are stable. INR was 1.1. She was mildly hypokalemic. She does appear to be slightly dehydrated as well and did have transaminitis with her bilirubin, AST, ALT, and alkaline phosphate all being elevated, though her ammonia level was within normal limits. The patient was placed inpatient admission to the ICU for further treatment and evaluation. REVIEW OF SYSTEMS: A 14 point review of systems was conducted with the patient and all were negative except for pertinent positives mentioned in above HPI. PAST MEDICAL HISTORY: 1. Hypertension. 2. Depression. 3. Attention deficit disorder. 4. History of previous alcohol abuse though the patient denies any daily alcohol use since she was admitted in June 2019, though she does report that before her arrival to the ER, her abdomen was hurting that so she did drink some wine to try to help this, though her serum alcohol level was 0. 5. She did have a history of being diagnosed with a gastrointestinal bleed, peptic ulcer disease, esophagitis, gastritis, duodenitis, alcoholic cirrhosis and thrombocytopenia upon her admission in June 2019. PAST SURGICAL HISTORY: 1. Three right knee surgeries, two being arthroscopy and the last one being a total right knee replacement. 2. Breast augmentation. SOCIAL HISTORY: The patient states that she does live by herself, that her son does live close by though from what I gather, is a single parent and unfortunately is not able to help her regularly with her ADLs. She states that her neighbor does check on her mostly and helps her take care of her dog. As previously mentioned, she does have a history of alcohol abuse though states she has not drank on a regular basis since June 2019 though did report drinking a few glasses of wine yesterday given her abdominal pain. There was a history of maybe only occasionally smoking, though she has not smoked a cigarette since she was 32. She denies any illicit drug use. FAMILY HISTORY: Positive for her mother having a history of multiple sclerosis. Her father was borderline diabetic. ALLERGIES: Patient has no known allergies. HOME MEDICATIONS: 1. Wellbutrin XL 300 mg p.o. daily. 2. Gabapentin 300 mg p.o. at bedtime. 3. Lisinopril/hydrochlorothiazide 10-12.5 mg tablet 1 p.o. daily. 4. Ritalin 20 mg p.o. t.i.d. DIAGNOSTIC DATA: 1. White blood cell count 5440, hemoglobin 12.1, hematocrit 33.7, platelet count is 110,000. PT 14.9, INR 1.15, PTT is 30.9. Sodium 108, potassium 3, chloride 70, serum bicarbonate is 17, BUN 4, creatinine 0.4 with a GFR greater than 60, glucose 94, calcium 8.1. Magnesium 1.8. Total bilirubin is 7.96, AST 199, ALT 129, alkaline phosphatase 282. CK is 432, troponin high sensitivity is 14. Lipase was 45. Ammonia level was 51. Urine drug screen was negative. Serum alcohol was zero. Urinalysis did show trace protein and ketones, a small amount of bilirubin and trace white blood cells. There was no blood noted. 2. EKG showed normal sinus rhythm at a rate of 83 with a QTc of 462. 3. CT of the abdomen and pelvis without contrast showed marked hepatosteatosis similar to prior. Faint perinephric stranding around the right kidney suggests pyelonephritis and to correlate clinically, and mild diverticulosis coli. 4. CT head and C-spine without contrast showed no acute injury. This is per Radiology. 5. Maxillofacial CT showed no acute injury. There was degeneration of the right temporomandibular joint. 6. Chest x-ray showed no evidence of acute pathology. PHYSICAL EXAMINATION: VITAL SIGNS: Temperature 98.5 degrees, heart rate 86, respirations 18, blood pressure is 106/77 with a MAP of 81, oxygen saturation is 95% on room air. GENERAL: Ms. Burroughs is a 69-year-old female. She was resting on the ER stretcher. She was in no acute distress. She was awake, alert and oriented to person, place, time and situation though was very restless upon my examination. She was constantly fidgeting with stuff in the bed with her, her nurse monitoring leads. She did occasionally have to be re- informed of why we had these monitor leads on her and why we were performing things to help take care of her. She could answer questions related to history of present illness and past medical history appropriately. She could follow commands appropriately. HEENT: Head, though does not have any deformity noted, she does have ecchymosis noted across her forehead, noted to her bilateral eyes and cheek area. She does have some swelling in her bilateral cheek area as well, though upon palpation of this area, she did not report any acute pain. Though she did not have any C-spine tenderness, she has been reporting neck pain since her first fall. Pupils were equal, round, reactive to light, were 3 mm bilaterally and brisk. She did have jaundice noted to bilateral sclera. She also had jaundice noted to oral mucous membranes though they were moist. Oropharynx was clear otherwise. NECK: Supple. Trachea midline. CARDIOVASCULAR: Patient has S1, S2 present. No murmurs, gallops, rubs appreciated with a regular rate and rhythm. PULMONARY: The patient has symmetrical chest expansion bilaterally. LUNGS: Clear to auscultation in bilateral full simmons. ABDOMEN: Soft. Does not appear to be distended though she reports tenderness upon palpation of the umbilical and just inferior to the umbilical area upon palpation. Bowel sounds were present in all 4 quadrants, were normoactive. EXTREMITIES: No cyanosis or edema noted. Pulse, motor, and sensory were intact in all extremities. Radial and pedal pulses are 2+ bilaterally. INTEGUMENTARY: The patient's skin color is pink, warm and dry though she does have jaundice that is able to be noted to bilateral sclera and oral mucosa. She does have ecchymosis as mentioned above noted to her face. NEUROLOGICAL: Patient is alert and oriented to person, place, time, and situation. She is able to answer questions and follow commands. She is able to move all extremities. There were no focal neurological deficits noted. Though as previously mentioned, the patient is very restless and fidgety. ASSESSMENT AND PLAN: 1. Hypotonic, hypovolemic hyponatremia. I do believe that this is likely secondary to the patient's reported nausea, vomiting and diarrhea, though the patient also does take lisinopril/hydrochlorothiazide combination medicine as well, this could be further contributing to this. We will start her with normal saline at 100 mL/hour. We will closely monitor her sodium level and neurological status. She will be placed in the ICU for close monitoring. She will have vital signs per ICU protocol and frequent neuro checks. 2. Nausea, vomiting, diarrhea. At this time, we will provide p.r.n. antiemetics. She has not had any vomiting episodes since arriving to the ER. We will obtain stool studies which include a Clostridium difficile study as well. 3. Fluid volume depletion. We will continue with normal saline as mentioned above in #1. 4. Hypokalemia. The patient did have a slightly low potassium level at 3. We have ordered some IV potassium to replace this. We will recheck her potassium and continue to monitor her electrolytes closely. 5. Transaminitis. The patient does have a history of cirrhosis of the liver and previous alcohol abuse, though she denies any heavy alcohol use at this time. She only reported drinking a few glasses of wine yesterday to help her abdominal pain. The patient does have jaundice noted to sclerae and oral mucosa. We will obtain an abdominal ultrasound. Her ammonia level was within normal limits. We have placed a consult with Gastroenterology with Dr. Johnson. We will await their evaluation and further recommendations for management. 6. History of cirrhosis of the liver and alcohol abuse. We will continue treatment as mentioned above in #1. 7. Possible urinary tract infection and pyelonephritis. The patient's CT did note a possible right pyelonephritis. She did have a few white blood cells noted in her urine, though she is not reporting any urinary symptoms at this time. We have ordered a urine culture though. Given this, we will go ahead and place her with antibiotic of Rocephin IV. We will await culture reports. 8. Reported falls. We did perform a CT head and C-spine as well as maxillofacial without contrast which did not show any acute abnormalities. We will continue to follow. The patient may require rehab or home health upon discharge. She reports she is living by herself and her neighbor is really the only one that helps take care of her. Her son does live close by though from what I gather from the patient, I believe he is a single parent and is not able to come and check on her maybe as frequently as she may need. She has been placed in the ICU for close monitoring. We will do strict intake and output. We have implemented aspiration precautions. We will do neurological checks. She is on seizure precautions as well. We have her n.p.o. at this time for an abdominal ultrasound. Further orders and recommendations pending hospital course, diagnostic studies, and physician evaluation. Dictated by LEA Barfield for Jens Edge MD cc: Jens Edge MD MTDD
[2019-11-01] MEDS: RITALIN PO SCH ×2 (13:25→16:36)
--- NOTE | 2019-11-01 14:19 | PROGRESS NOTE ---
DATE: 11/01/2019 SUBJECTIVE: Patient continues to feel better. Alert and awake, complains of some nausea, but definitely getting better. No more episodes of diarrhea according to her. OBJECTIVE: Vital Signs: Temperature 98.1 degrees, heart rate 75, respiratory 12, blood pressure 108/80, and O2 saturation 98% on room air. General: This is a 69-year-old female lying in bed in no acute distress. HEENT: Head is normocephalic. The patient has ecchymosis noted across her forehead, bilateral eyes, and cheek area. This swelling is better in comparing with admission. Neck: No JVD noted. No carotid bruits. No lymphadenopathy. No thyromegaly. Cardiovascular: S1, S2 heard. No murmurs, gallops, or rubs. Regular rate and rhythm. Respiratory: Clear bilaterally to auscultation. No work of breathing or using accessory muscles. Abdomen: Soft. Nontender to palpation. Bowel sounds present. No organomegaly. Extremities: No clubbing, cyanosis, or edema. Peripheral pulses present in both legs. Neurological: Patient is alert and oriented x3. Moves all 4 extremities. LABORATORY DATA: The white cell count is 4.92, hemoglobin 11.3, hematocrit 32, and platelets 106,000 with sodium 120, potassium 3.3, total bilirubin 11.5 with AST 210 and ALT 129. ASSESSMENT/PLAN: 1. Hypotonic, hypovolemic, and hyponatremia. I think that it is secondary to protracted nausea, vomiting and diarrhea. She also is on lisinopril and hydrochlorothiazide which could have further made this sodium worse. At this point, she has been placed on normal saline at 100 mL/h since admission, and sodium is slowly getting higher. This morning it is 120. The patient is definitely more alert and awake, and that could explain her metabolic encephalopathy. At this point, we will continue to monitor this patient closely but I do not think she needs to stay in the intensive care unit. 2. Normal liver function tests. The bilirubin is elevated as well as AST and ALT, and also alkaline phosphatase. She has history of cirrhosis of the liver and previous alcohol abuse. She reports that she is just drinking one glass of wine every order day. The ammonia level has been checked, and was within normal limits. We have put a consult for GI, and will see what else we can do for her. 3. Possible UTI and pyelonephritis. The patient's CT showed possible pyelonephritis but considering that her white cell count is normal. Urine culture shows gram- negative rods so we will continue to provide ceftriaxone for this patient. 4. Recurrent falls. At the time that we were called for admission, this patient did not have any CT ordered in the ER. We ordered a CT of the head and C-spine, and also maxillofacial without contrast which did show no acute abnormalities. At this point, we will continue to monitor. 5. History of cirrhosis of the liver and alcohol abuse. Aware. We will continue to monitor. DISPOSITION: At this point, we will continue to monitor this patient closely. We will transfer the patient to the 4th floor. cc: Gama Bella MD MTDD
[2019-11-01 14:33] LABS: AGAP 15; ALBUMIN 3.4 g/dL (3.5-5.0); BUN 8 mg/dL (8-22); CALCIUM 8.6 mg/dL (8.8-10.2); CHLORIDE 83 mmol/L (98-107); COSMO 246; CREATININE 0.5 mg/dL (0.5-0.9); ESTIMATED GFR > 60; GLUCOSE 169 mg/dL (70-104); POTASSIUM 3.1 mmol/L (3.5-5.1); SODIUM 121 mmol/L (136-145); TCO2 23 mmol/L (25-35)
[2019-11-01 14:57] LABS: PHOSPHORUS 0.8 mg/dL (2.7-4.5)
[2019-11-01 15:03] LABS: DIRECT BILIRUBIN 8.4 mg/dL (0.00-0.20); TOTAL BILIRUBIN 11.24 mg/dL (0.20-1.00)
[2019-11-01] MEDS ORDERED: SAMSCA PO ONE ×2 (15:04→16:45)
[2019-11-01] MEDS: NEUTRA-PHOS PO SCH ×2 (15:15→23:29)
[2019-11-01] MEDS ORDERED: SODIUM PHOSPHATE 35 MMOL in NS 250 ML IV ONE (15:30)
--- NOTE | 2019-11-01 16:47 | GASTROENTEROLOGY CONSULTATION ---
DATE: 11/01/2019 REASON FOR CONSULTATION: Persistent vomiting and abnormal liver function tests. HISTORY OF PRESENT ILLNESS: Ms. Burroughs is a 69-year-old female with a history of hypertension and arthritis. The patient came to the hospital on the mentioning that she had a fall. She was dizzy, weak and fatigued. The patient has bruises all over her face, on her cheeks and near her eyes. Patient mentioned having at least 3 episodes of fall in the last few weeks. The patient complains that she has abdominal pain in the periumbilical area and in the epigastric area, and describes it as cramping pain. with persistent nausea and vomiting. The patient has denied any episodes of bleeding or noticing any blood in her stools. She mentioned having diarrhea on Tuesday, which was watery in consistency. The patient does mention that she has a history of C diff in the past. The patient has denied any nausea, vomiting, fever, chills, shortness of breath. The patient mentioned that she used to have at least 3 to 4 glasses of wine daily, but currently she has reduced her alcohol consumption to 1 glass a day. The patient was seen by GI in June 2019 for GI bleed and abnormal liver function test. An endoscopy was done by Dr. Joyce on 06/26/2019 and the findings were the patient had got reflux esophagitis in the distal esophagus. Multiple erosions were found in the gastric antrum, gastritis in the gastric antrum. Single large ulcer ranging between 5 to 9 mm in size was found. Biopsy was taken. Duodenal inflammation was found in the duodenal bulb. The patient's pathology report showed that the random stomach biopsy had inactive gastritis with foveolar hyperplasia, negative H pylori, and the stomach/antrum biopsy showed that she had got inactive gastritis with foveolar hyperplasia, edema and congestion, and it was negative for H. pylori. The patient's abdomen and pelvis CT on admission showed marked hepatic steatosis, pain, perinephric stranding around the right kidney suggesting pyelonephritis and mild diverticulosis coli. The patient's maxillofacial CT showed no acute injury, degeneration of the right temporomandibular joint. The patient's head and cervical CT has shown no acute injury. Abdominal ultrasound has shown severe fatty changes of the liver, significant sludge in the gallbladder and tiny left renal cyst. Chest x-ray has shown no evidence of acute pathology. PAST MEDICAL HISTORY: Hypertension, depression, attention deficit disorder, alcohol abuse, GI bleed, peptic ulcer disease, esophagitis, gastritis, duodenitis, alcoholic cirrhosis, thrombocytopenia. PAST SURGICAL HISTORY: Three right knee surgeries - 2 arthroscopies, 1 total knee replacement, breast augmentation. ALLERGIES: No known drug allergies. SOCIAL HISTORY: The patient is single, lives alone. Has 1 son, 3 grandkids. She has denied smoking, but drinks wine on a daily basis. Has denied doing any illicit drugs. FAMILY HISTORY: Mother had multiple sclerosis, father had diabetes and sister had thyroid cancer. HOME MEDICATIONS: Lisinopril/hydrochlorothiazide 10/12.5 mg one tablet daily, Wellbutrin 300 mg p.o. daily, Ritalin 20 mg p.o. 3 times a day, Neurontin 300 mg at bedtime. REVIEW OF SYSTEMS: As per HPI. Otherwise, 12 point review of systems is negative. PHYSICAL EXAMINATION: Vital Signs: Temperature 98.7, pulse is 98, respirations 20, blood pressure 100/79, oxygen saturation 95% on room air. The patient's weight is 155 pounds, BMI is 24.4 kg/m2. General: She is alert, oriented x3. Answering questions appropriately, in no acute distress. HEENT: Pale conjunctivae, mild icterus, KAREN. Neck: Supple. Lungs: Clear to auscultation. Cardiovascular: Regular. The patient is tachycardic. Abdomen: Soft. Tender in the epigastric and periumbilical area. Active bowel sounds heard in all 4 quadrants. Extremities: No clubbing, no cyanosis, no edema. Pedal pulses 2+ present bilaterally. Neurologic: She is alert, oriented x3. Nonfocal. Cranial nerves 2-12 grossly intact. LABS: WBCs are 4.92, RBCs 3.27, hemoglobin is 11.3, hematocrit is 32.0, platelet count is 106. Sodium 121, potassium 3.1, chloride 83, carbon dioxide 23, anion gap 15. BUN is 8, creatinine is 0.5, glucose is 169, calcium is 8.6, phosphorus 0.8. Total bilirubin is 11.24, AST is 210, ALT is 129, alkaline phosphatase is 261, albumin is 3.4. Urinalysis has shown trace protein, 40 of ketones, small amount of bilirubin and trace of WBC. Toxicology report was negative. IMPRESSION AND PLAN: 1. Elevated liver enzymes. 2. Hyponatremia. 3. Gallbladder sludge. 4. Fatty liver. 5. Anemia. 6. Pyelonephritis. 7. Nausea and vomiting 8. Alcoholism-has cut down and trying to quit. 9. H/o recent Syncope and Fall with bruising over the face. PLAN: Ms. Burroughs is a 69-year-old female with a history of hypertension, attention deficit and alcohol abuse. Gastroenterology has been consulted for her persistent vomiting and abnormal LFTs. The patient's liver enzymes are elevated. Her total bilirubin is 7.24, AST is 210, ALT is 129, alkaline phosphatase is 216. The patient's abdominal ultrasound has shown that she has got severe fatty liver changes and significant sludge in the gallbladder. We have consulted the surgeon for her gallbladder sludge. The patient is currently receiving IV fluids, normal saline at 100 mL. She is on antibiotic Rocephin and she is receiving Protonix 40 mg IV twice a day. We will continue to monitor the patient and follow the plan of care per PCP and the surgeon. This plan was discussed with Dr. Johnson. Thank you for your consult. Please call us for any further questions or concerns. Dictated by LEA Bejarano for Lito Johnson MD cc: Lito Johnson MD I have seen and examined the patient myself and I agree with the above plan of care. Please call us with any further questions or concerns. [facility] CENTERJose
--- NOTE | 2019-11-01 20:43 | CONSULTATION ---
DATE OF CONSULTATION: 11/01/2019 REASON FOR CONSULTATION: Gallbladder sludge and elevated liver enzymes. REQUESTING PHYSICIAN: Dr. Johnson. HISTORY OF PRESENT ILLNESS: This is a 69-year-old female who reports a 3 to 4 week history of intermittent, generalized abdominal pain, nausea, vomiting, diarrhea, and sore throat as well as weakness. These symptoms were progressive and persistent necessitating her arrival to the ER for further evaluation. She currently, as of today, reports no abdominal pain, nausea, or vomiting. She has eaten and has not been sick afterwards. She has been drinking multiple glasses of water a day over the last several days without any other oral intake. On admission, she was found to have severe hyponatremia, elevated transaminases, alkaline phosphatase and hyperbilirubinemia. Her serum alcohol level was 0, though she does have a history of alcohol abuse. Her cholesterol level was mildly elevated at 244, triglycerides 125. Urinalysis was unremarkable. Urine drug screen was negative. REVIEW OF SYSTEMS: The patient has fallen and reported bruising on the face. Otherwise, 10 systems reviewed and negative except as noted above. HOME MEDICATIONS: Wellbutrin, gabapentin, lisinopril/hydrochlorothiazide, Ritalin. ALLERGIES: No known drug allergies. FAMILY HISTORY: Her mother had multiple sclerosis. Her father had diabetes and her sister had gallbladder disease. PAST SURGICAL HISTORY: Breast augmentation, cataract surgery, right knee replacement, but none in the recent weeks. PAST MEDICAL HISTORY: Hypertension, alcohol abuse, attention deficit disorder, depression. She has previously also been diagnosed with peptic ulcer disease, esophagitis, duodenitis, alcoholic cirrhosis and thrombocytopenia back in 2019. SOCIAL HISTORY: Negative for tobacco. She reports being sober from alcohol for the last several months, except for a few days ago she had a glass of wine. Previously, she drank several glasses of wine a day. She denies illicit drug use. PHYSICAL EXAMINATION: Vital Signs: Temperature 99.9 degrees, pulse 82, respirations 18, blood pressure 118/68, O2 saturation 95%. General: Well-developed, well-nourished female in no distress who looks her stated age. HEENT: There are large ecchymoses around both eyes and cheeks, but her pupils are equal, round, reactive to light. Her sclerae look icteric. Her mucous membranes are normal. Neck: Supple. No thyromegaly. CV: Regular rate and rhythm. Respiratory: Clear. Bilateral breath sounds. No work of breathing. GI: Soft, nontender, nondistended. No organomegaly or mass. No hernias. Extremities: No clubbing, cyanosis, or edema. Skin: Warm and dry. No rash, but mildly jaundiced. LABORATORY: White cell count 4.9, hemoglobin 11, hematocrit 32, platelet count 106,000. Sodium 121 up from 108, potassium 3.1, chloride 83, CO2 23, BUN 8, creatinine 0.5, glucose 169, total bilirubin 11, AST 210, ALT 129, alkaline phosphatase 261, albumin 3.4, lipase 45. IMAGING: Abdominal ultrasound was obtained yesterday showing severe fatty change of the liver as well as significant sludge in the gallbladder. There are no shadowing gallstones. No gallbladder distention. No free fluid. The common bile duct is normal at 3 mm. The wall of the gallbladder was not measured. CT scan of the abdomen and pelvis was obtained 2 days ago showing marked hepatic steatosis, which is similar to the prior scan and there is faint perinephric stranding around the right kidney suggesting pyelonephritis. There is mild diverticulosis coli. There are no liver masses or biliary dilation. ASSESSMENT AND PLAN: A 69-year-old female with vague abdominal complaints that now apparently have resolved accompanied by severe hyponatremia, a history of alcohol abuse and now apparent biliary sludge. The etiology of her jaundice and elevated liver function tests is unclear. It does not appear that she has acute cholecystitis. We will check a HIDA scan in the morning. I would recommend further workup for her jaundice beyond biliary disease, perhaps secondary to her alcohol abuse and chronic hepatitis. We will check a hepatitis profile as well. cc: De Thompson MD
[2019-11-01] MEDS: NEURONTIN PO SCH (23:29)
[2019-11-01] MEDS: PROTONIX IV SCH (23:29)
[2019-11-02] MEDS: NEUTRA-PHOS PO SCH ×3 (03:47→16:05)
[2019-11-02] MEDS: NS 1,000 ML IV SCH (04:37)
--- NOTE | 2019-11-02 05:42 | Diag Imaging Result Doc PS360 ---
EXAM: HIP W/PELVIS BILAT 2 VIEWS HISTORY: fall out of bed TECHNIQUE: Three views COMPARISON: None. FINDINGS: Prominent left hip arthritis with joint space narrowing and bony remodeling. There are cysts about the acetabulum and in the femoral head. No fracture or dislocation to either hip. IMPRESSION: No acute bony injury. Electronically signed by Flavio Gross 11/02/2019 5:39 AM
[2019-11-02 07:06] LABS: BASO# 0.02 X1000 (0.0-0.2); BASO% 0.6 % (0.0-0.8); EOS# 0.02 X1000 (0.0-0.7); EOS% 0.6 % (0.0-10.0); HEMATOCRIT 30.1 % (37.0-47.0); HEMOGLOBIN 10.2 g/dL (12.0-16.0); IMM GRAN# 0.02 X1000 (0.0-0.04); IMM GRAN% 0.6 % (0.0-0.5); LYMPH# 0.59 X1000 (1.2-3.4); LYMPH% 16.3 % (20.5-51.1); MCH 33.7 PG (27-31); MCHC 33.9 g/dL (33-37); MCV 99.3 FL (81-99); MONO# 0.46 X1000 (0.11-0.59); MONO% 12.7 % (1.7-9.3); NEUT% 69.2 % (42.2-75.2); PLT 100 X1000 (130-400); RBC 3.03 XMIL (4.2-5.4); RDW 15.7 % (11.5-14.5); WBC 3.61 X1000 (4.8-10.8)
[2019-11-02 07:16] LABS: INR 1.25; PROTIME 15.9 Seconds (11.0-16.0)
[2019-11-02 07:33] LABS: MAGNESIUM 2.1 mg/dL (1.5-2.7); PHOSPHORUS 1.9 mg/dL (2.7-4.5)
[2019-11-02 07:42] LABS: AGAP 13; ALB/GLOB RATIO 1.1; ALBUMIN 3.2 g/dL (3.5-5.0); ALKALINE PHOSPHATASE 248 U/L (32-104); BUN 5 mg/dL (8-22); CHLORIDE 94 mmol/L (98-107); COSMO 265; CREATININE 0.5 mg/dL (0.5-0.9); ESTIMATED GFR > 60; GLUCOSE 132 mg/dL (70-104); GOT 236 U/L (10-30); GPT 136 U/L (10-36); POTASSIUM 3.8 mmol/L (3.5-5.1); SODIUM 133 mmol/L (136-145); TCO2 26 mmol/L (25-35); TOTAL BILIRUBIN 11.17 mg/dL (0.20-1.00)
[2019-11-02] MEDS ORDERED: PRINZIDE 10/12.5MG PO SCH (09:00)
[2019-11-02] MEDS ORDERED: SODIUM PHOSPHATE 40 MMOL in NS 250 ML IV ONE (09:45)
--- NOTE | 2019-11-02 10:54 | Diag Imaging Result Doc PS360 ---
EXAM: HIDA SCAN W/ EJECTION FRACTION HISTORY: abnormal lft's, abdominal pain, n/v TECHNIQUE: Nuclear medicine HIDA scan with gallbladder ejection fraction COMPARISON: None. FINDINGS: 6.3 mCi Choletec administered. There is normal uptake in the liver. Normal filling of the gallbladder. Ensure was given to determine the gallbladder ejection fraction. No appreciable emptying through 60 minutes. IMPRESSION: Abnormal exam with no measurable emptying from the gallbladder. Electronically signed by Flavio Gross 11/02/2019 10:52 AM
[2019-11-02] MEDS: RITALIN PO SCH ×3 (10:59→17:27)
[2019-11-02] MEDS: ROCEPHIN 1 GM in NS 50 ML IV SCH (11:00)
[2019-11-02] MEDS: WELLBUTRIN XL PO SCH (11:00)
--- NOTE | 2019-11-02 14:00 | GASTROENTEROLOGY PROGRESS NOTE ---
DATE: 11/02/2019 SUBJECTIVE: Ms. Burroughs is a 69-year-old female. She was resting in bed. The patient had just come back from her nuclear scan. She has denied any more nausea, vomiting, but c/o abdominal pain. OBJECTIVE: Vital signs: Temperature 97.8 degrees, pulse 92, respirations 20, blood pressure 118/70, oxygen saturation 100% on room air. Patient's weight is 155 pounds. BMI is 24.4 cm2. General: She is alert, oriented x3. HEENT: Pale conjunctivae. No icterus. PERRL. Neck: Supple. Lungs: Clear to auscultation. Cardiovascular: Patient is tachycardic. Abdomen: Soft. Generalized tenderness. Active bowel sounds heard in all 4 quadrants. Extremities: No clubbing, no cyanosis, no edema. Pedal pulses 2+ present bilaterally. Neurological: Alert and oriented x3. LABORATORY DATA: WBCs of 3.61, RBC 3.03, hemoglobin 10.2, hematocrit 30.1, platelet 100,000. The patient's PT is 15.99, INR is 1.25. Sodium 133, potassium 3.8, chloride 94, carbon dioxide 26, anion gap 13, BUN 5, creatinine 0.5, glucose is 132, calcium 9.0. Phosphorus 1.9, magnesium 2.1. Total bilirubin 11.17, AST 236, ALT 136, alkaline is 248. Albumin 3.2. IMAGING: The patient's HIDA scan today, showed that it was an abnormal exam with no measurable emptying from the gallbladder. IMPRESSION AND PLAN: 1. Elevated liver enzymes. 2. Hyponatremia. 3. Gallbladder sludge. 4. Fatty liver. 5. Anemia. 6. Pyelonephritis. 7. Nausea and vomiting. 8. Alcohol abuse. 9. Syncope s/p fall with bruising all over the face. PLAN: Ms. Burroughs is a 69-year-old female with a history of hypertension, attention deficit, and alcohol abuse. GI is following her for nausea and vomiting and abnormal LFTs. The patient's liver enzymes today were total bilirubin 11.17, AST 236, ALT 136, alkaline 248. The patient's HIDA scan to day showed that an abnormal exam, no measurable emptying from the gallbladder. Surgery has been consulted for her gallbladder sludge. The patient is currently on IV fluids, normal saline at 100 mL per hour. The patient is also getting sodium phosphate at 62 mm per hour per PCP. She is receiving antibiotic Rocephin. We will continue to monitor the patient and follow the plan of care per PCP and the surgeon. This plan was with Dr. Joyce. Please call us for any further questions or concerns. Dictated by LAE Bejarano for Eduardo Joyce MD MTDD
--- NOTE | 2019-11-02 15:24 | GENERAL SURGERY PROGRESS NOTE ---
DATE: 11/02/2019 SUBJECTIVE: The patient reports some abdominal pain overnight and nausea, but it is not so bad this morning. She is anxious to brush her teeth. She reports that she fell again, although I am not sure if this is accurate. She seems somewhat in a state of delirium. OBJECTIVE: Vital Signs: She is afebrile. Pulse is in the 90s. Blood pressure is stable. O2 saturation is 100%. General: She is awake and alert. She is somewhat anxious and very talkative, somewhat fixated on subjects not pertinent to our conversation. Respiratory: No work of breathing. GI: Soft, mild tenderness diffusely. No rebound or guarding. No organomegaly or mass appreciated. LABORATORY: White blood cell count 3.6, hemoglobin 10, hematocrit 30. Electrolytes and liver function tests are pending. ASSESSMENT AND PLAN: A 69-year-old female with abdominal pain, history of nausea, vomiting and diarrhea, elevated liver function tests, biliary sludge and history of alcohol abuse, as well as severe hyponatremia on admission. We will recheck her metabolic profile, when it is resulted we have ordered a HIDA scan to check for patency of the cystic duct. Further recommendations to follow. cc: De Thompson MD
--- NOTE | 2019-11-02 15:34 | PROGRESS NOTE ---
DATE: 11/02/2019 SUBJECTIVE: The patient reports feeling fine. Mild epigastric pain reported and she is back from his HIDA scan, requests some food. No other complaints noted. OBJECTIVE: Vital Signs: Temperature 97.8 degrees, heart rate 92, respiratory rate 20, blood pressure 118/70. O2 saturation 100% on room air. General: This is a chronically ill- appearing, 69-year-old, female lying in bed, in no acute distress. HEENT: Head is normocephalic. The patient has ecchymosis noted across her forehead, bilateral eyes and cheek area swelling better in comparing with admission. Neck: No JVD noted. No carotid bruits. No lymphadenopathy. No thyromegaly. Cardiovascular: S1, S2 heard. No murmurs, gallops, or rubs. Regular rate and rhythm. Respiratory: Clear bilaterally to auscultation. No work of breathing or using accessory muscles. Abdomen: Soft, nontender to palpation. Bowel sounds present. No organomegaly. Extremities: No clubbing, cyanosis, or edema. Peripheral pulses present in both legs. Neurological: Patient is alert and oriented x3. Moves 4 extremities. LABORATORY DATA: White cell count 3.61. Hemoglobin 10.2, hematocrit 30.1, platelets 100,000. Sodium 133, potassium 3.8, phosphorus 1.9 and magnesium 2.1 with bilirubin 11.17. ASSESSMENT AND PLAN: 1. Hypotonic hyponatremia. I think that is secondary to protracted nausea and vomiting. That is getting better. Patient's sodium is today home 133. At admission was 108, so at this point, we will continue with IV fluid resuscitation. 2. Abnormal normal liver function tests. Bilirubin continued to be very elevated of 11. AST and ALT are getting better. She has history of alcohol abuse. Alcohol was negative on admission. The ultrasound abdominal ultrasound shows biliary sludge. HIDA scan was ordered. The result is back and they said no emptying of the gallbladder. We will see what GI has to say. 3. Urinary tract infection. Urine culture shows gram-negative rods. We will continue with ceftriaxone. 4. Recurrent falls. Aware. Physical therapy has been consulted. 5. History of cirrhosis of the liver and alcohol abuse, aware. Abnormal transaminase and bilirubin. GI is on board. 6. Disposition: From following lead from GI and General Surgery. cc: Gama Bella MD
[2019-11-02] MEDS: NEURONTIN PO SCH (20:23)
[2019-11-02] MEDS: PROTONIX IV SCH (20:23)
[2019-11-03 07:10] LABS: INR 1.17; PROTIME 15.1 Seconds (11.0-16.0)
[2019-11-03 07:31] LABS: BASO# 0.02 X1000 (0.0-0.2); BASO% 0.7 % (0.0-0.8); EOS# 0.02 X1000 (0.0-0.7); EOS% 0.7 % (0.0-10.0); HEMATOCRIT 27.4 % (37.0-47.0); HEMOGLOBIN 9.8 g/dL (12.0-16.0); IMM GRAN# 0.02 X1000 (0.0-0.04); IMM GRAN% 0.7 % (0.0-0.5); LYMPH# 0.69 X1000 (1.2-3.4); LYMPH% 24.6 % (20.5-51.1); MCH 35.8 PG (27-31); MCHC 35.8 g/dL (33-37); MONO# 0.43 X1000 (0.11-0.59); MONO% 15.4 % (1.7-9.3); MPV 11.2 FL (7.4-10.4); NEUT# 1.62 X1000 (1.4-6.5); NEUT% 57.9 % (42.2-75.2); PLT 110 X1000 (130-400); RBC 2.74 XMIL (4.2-5.4); RDW 16.5 % (11.5-14.5)
[2019-11-03 07:44] LABS: AGAP 13; ALB/GLOB RATIO 1.2; ALKALINE PHOSPHATASE 233 U/L (32-104); BUN 3 mg/dL (8-22); CALCIUM 8.4 mg/dL (8.8-10.2); CHLORIDE 96 mmol/L (98-107); COSMO 269; CREATININE 0.5 mg/dL (0.5-0.9); ESTIMATED GFR > 60; GLUCOSE 134 mg/dL (70-104); GOT 255 U/L (10-30); GPT 146 U/L (10-36); MAGNESIUM 1.9 mg/dL (1.5-2.7); PHOSPHORUS 1.8 mg/dL (2.7-4.5); POTASSIUM 2.8 mmol/L (3.5-5.1); SODIUM 135 mmol/L (136-145); TCO2 26 mmol/L (25-35); TOTAL PROTEIN 5.6 g/dL (6.3-8.3)
[2019-11-03] MEDS ORDERED: SODIUM PHOSPHATE 40 MMOL in NS 250 ML IV ONE (08:41)
[2019-11-03] MEDS: WELLBUTRIN XL PO SCH (09:17)
[2019-11-03] MEDS: RITALIN PO SCH ×3 (09:17→18:01)
[2019-11-03] MEDS: NS 1,000 ML IV SCH (09:18)
[2019-11-03] MEDS: NEUTRA-PHOS PO SCH ×4 (09:21→21:02)
[2019-11-03] MEDS ORDERED: DIFLUCAN PO ONE (09:38)
[2019-11-03] MEDS: ROCEPHIN 1 GM in NS 50 ML IV SCH (11:23)
[2019-11-03] MEDS: FLEXERIL PO SCH ×2 (11:28→21:01)
[2019-11-03 12:00] LABS: HEPATITIS PROFILE ACUTE SEE COMMENTS
[2019-11-03] MEDS ORDERED: POTASSIUM CHLORIDE 60 MEQ in NS 500 ML IV ONE (13:00)
--- NOTE | 2019-11-03 14:08 | PROGRESS NOTE ---
DATE: 11/03/2019 SUBJECTIVE: Patient reports feeling fine. No complaints at this time. She reports only mild oral thrush. OBJECTIVE: Vital Signs: Temperature 97.6 degrees, heart rate 79, respiratory rate 18, blood pressure 118/75, O2 saturation 99 percent on room air. General: This is a chronically ill- appearing 69-year-old, female lying in bed in no acute distress. HEENT: Head is normocephalic. Patient has ecchymosis noted across her forehead, bilateral eyes and cheek area and the swelling is getting better. Neck: No JVD noted. No carotid bruits. Cardiovascular: S1, S2 heard. No murmurs, gallops, or rubs. Regular rate and rhythm. Respiratory: Clear bilaterally to auscultation. No work of breathing or using accessory muscles. Abdomen: Soft, nontender to palpation. Bowel sounds present. No organomegaly. Extremities: No clubbing, cyanosis, or edema. Peripheral pulses present in both legs. Neurological: Patient is alert and oriented x3. Moves 4 extremities. LABORATORY DATA: The hemoglobin is 9.8 with white cell count 2.8, platelet count is 110,000 with potassium 2.8, phosphorus 1.8, magnesium 1.9, total bilirubin 9.9. ASSESSMENT AND PLAN: 1. Hypotonic hyponatremia. The sodium is 135. Will continue with IV fluids. 2. Abnormal liver function tests. Bilirubin continues to be very high of 9.3 but better in comparing with yesterday that was 11. AST and ALT are almost the same in comparing with yesterday 255, 146. GI is following this patient as well as General Surgery. Because of biliary sludge noted in the abdominal ultrasound HIDA scan was ordered and he showed no emptying no gallbladder. Will see what surgery has to say. 3. Escherichia coli urinary tract infection the bacteria is pansensitive, at this point will continue with ceftriaxone but we can switch to any oral medication upon discharge. 4. Recurrent falls aware, physical therapy has been consulted. 5. History of cirrhosis of the liver and alcohol abuse aware, abnormal transaminase and bilirubin noted, gastroenterology is on board. 6. Disposition for following the lead from GI and General Surgery. cc: Gama Bella MD
--- NOTE | 2019-11-03 15:51 | GENERAL SURGERY PROGRESS NOTE ---
DATE: 11/03/2019 SUBJECTIVE: She denies any abdominal pain, no nausea, vomiting. She has no fevers, no tachycardia, blood pressure 118/75.General: She is alert, she is not obviously jaundiced. Cardiovascular: Normal rate. Her abdomen soft, nontender, nondistended. Integument: Warm, dry. LAB: Her white count is down to 2.8, hematocrit is low at 27, platelets 110,000. Her sodium remains low although improved, potassium is low, creatinine 0.5, bilirubin is down to 9.90, her phosphorus is low AST, ALT, alkaline phosphatase are all about the same. Lactate was 3.1 on admission. I reviewed all of her imaging including recent HIDA scan. The cystic duct does fill which would argue against cholecystitis however there is no emptying which would be expected with pain medication and other medical issues. Her abdominal exam is very benign. I wonder if this is more underlying liver dysfunction given the profound nature of her liver function abnormalities with normal caliber bile duct on multiple studies. She is quite confused this morning seems little tremulous, I wonder if she go into DTs. An MRCP would be beneficial evaluating her bile duct, I do see contrast filling the small bowel on her HIDA scan which would suggest that she has a patent common bile duct however, will follow her along. She may ultimately benefit from cholecystectomy. cc: Karo Patton MD [facility]
[2019-11-03] MEDS ORDERED: M.V.I.-12 10 ML, FOLIC ACID 1 MG, MAGNESIUM SULFATE 1 GM, THIAMINE 100 MG in NS 1,000 ML IV SCH (16:15)
[2019-11-03] MEDS ORDERED: THIAMINE 100 MG in NS 50 ML IV SCH (16:15)
--- NOTE | 2019-11-03 20:16 | GASTROENTEROLOGY PROGRESS NOTE ---
DATE: 11/03/2019 ATTENDING PHYSICIAN: Dr. Nguyen. PRIMARY CARE DOCTOR: Gloria Sharma. SUBJECTIVE: Patient resting in bed. She is feeling better. She denies any nausea, vomiting. She was able to eat 50% of her meal today. Her last bowel movement was 2 days ago. VITALS: Temperature of 97.5 degrees, pulse rate 94, respiratory rate 18, blood pressure 110/61, saturating 100% room air. Body weight of 155 pounds, 12.8 ounces. BMI 24.4 kg. The patient is poorly nourished, lying in bed, in no acute distress. HEENT: Pale conjunctivae, icteric sclerae. Pupils equal, reactive to light. Neck: Supple. Face has old bruising from recent fall. The abdomen is soft, mild protuberance, no guarding, no rebound. Extremities: No cyanosis or clubbing. Neurologic: He is alert, awake, and oriented. LABORATORIES: Hemoglobin and hematocrit is 9.8 and 27, white count of 2.8, platelet count of 110,000. Sodium 130, potassium 2.8, chloride 96, bicarb 20, anion gap 13, BUN of 3, creatinine 0.5, glucose of 134, calcium is 8.4. Phosphorus 1.8, magnesium 1.9. Total bilirubin is 9.9. AST 255, ALT 146, alkaline phosphatase is 233. Total protein is 5.6, albumin of 3. Hepatitis panel is nonreactive. IMPRESSION AND PLAN: 1. Elevated liver enzymes. 2. Jaundice. 3. Hyponatremia. 4. Gallbladder sludge. 5. Fatty liver. 6. Alcoholic cirrhosis. 7. Anemia. 8. Melena. 9. Nausea and vomiting. 10. Alcohol abuse. 11. Syncope status post fall, bruising all over the place. RECOMMENDATIONS: 1. The patient is counseled about quitting alcohol completely. She has cut down but has not quit completely. Encouraged her to quit alcohol completely, watch for withdrawal. We will continue to follow liver enzymes. General Surgery is on board for gallbladder sludge. They are holding off on any kind of surgical intervention at the moment. To continue on IV fluids. Continue to watch her electrolytes and continuing to watch her blood counts, transfuse as needed. She is getting IV Zofran as needed for nausea and vomiting. She will continue on PPIs for GI prophylaxis with Protonix once daily. Her hyponatremia is improving. 2. We will start her on a banana bag once daily. We will start her on thiamine once daily and multivitamin once daily. 3. The above plan was explained to the patient and all questions answered. Please call with any further questions. cc: MD Dr. Patrick Stout
[2019-11-03] MEDS: NEURONTIN PO SCH (21:01)
[2019-11-03] MEDS: SODIUM CHLORIDE 0.9% INJ SCH (21:02)
[2019-11-03] MEDS: PROTONIX IV SCH (21:02)
[2019-11-04] MEDS: THIAMINE IV SCH ×2 (00:11→20:31)
[2019-11-04] MEDS: [UNRECOGNIZED DRUG - OTHER] IV SCH ×2 (00:11→20:31)
[2019-11-04] MEDS: M V I IV SCH ×2 (00:11→20:31)
[2019-11-04] MEDS: FOLIC ACID IV SCH ×2 (00:11→20:31)
[2019-11-04] MEDS: MAGNESIUM SULFATE IV SCH ×2 (00:11→20:31)
[2019-11-04 07:25] LABS: INR 1.28; PROTIME 16.2 Seconds (11.0-16.0)
[2019-11-04 07:31] LABS: BASO# 0.06 X1000 (0.0-0.2); BASO% 1.9 % (0.0-0.8); EOS# 0.05 X1000 (0.0-0.7); EOS% 1.6 % (0.0-10.0); HEMATOCRIT 26.3 % (37.0-47.0); HEMOGLOBIN 8.6 g/dL (12.0-16.0); IMM GRAN# 0.03 X1000 (0.0-0.04); LYMPH# 0.86 X1000 (1.2-3.4); LYMPH% 27.6 % (20.5-51.1); MCH 33.9 PG (27-31); MCHC 32.7 g/dL (33-37); MCV 103.5 FL (81-99); MONO# 0.52 X1000 (0.11-0.59); MONO% 16.7 % (1.7-9.3); MPV 10.8 FL (7.4-10.4); NEUT% 51.2 % (42.2-75.2); PLT 129 X1000 (130-400); RBC 2.54 XMIL (4.2-5.4); WBC 3.12 X1000 (4.8-10.8)
[2019-11-04 08:02] LABS: AGAP 10; ALBUMIN 2.6 g/dL (3.5-5.0); ALKALINE PHOSPHATASE 227 U/L (32-104); BUN 2 mg/dL (8-22); CALCIUM 8.4 mg/dL (8.8-10.2); CHLORIDE 100 mmol/L (98-107); COSMO 268; CREATININE 0.4 mg/dL (0.5-0.9); ESTIMATED GFR > 60; GLUCOSE 125 mg/dL (70-104); GOT 245 U/L (10-30); GPT 128 U/L (10-36); PHOSPHORUS 1.6 mg/dL (2.7-4.5); POTASSIUM 3.3 mmol/L (3.5-5.1); SODIUM 135 mmol/L (136-145); TCO2 25 mmol/L (25-35); TOTAL BILIRUBIN 8.14 mg/dL (0.20-1.00); TOTAL PROTEIN 5.2 g/dL (6.3-8.3)
[2019-11-04] MEDS ORDERED: POTASSIUM CHLORIDE 60 MEQ in NS 500 ML IV ONE (09:14)
[2019-11-04] MEDS ORDERED: SODIUM PHOSPHATE 35 MMOL in NS 250 ML IV ONE (09:14)
[2019-11-04] MEDS: WELLBUTRIN XL PO SCH (09:23)
[2019-11-04] MEDS: FLEXERIL PO SCH ×2 (09:24→20:32)
[2019-11-04] MEDS: NEUTRA-PHOS PO SCH ×4 (09:24→20:31)
[2019-11-04] MEDS: ROCEPHIN 1 GM in NS 50 ML IV SCH ×2 (09:24→11:08)
[2019-11-04] MEDS: RITALIN PO SCH ×3 (09:24→17:30)
[2019-11-04] MEDS: CENTRUM SILVER PO SCH (09:24)
--- NOTE | 2019-11-04 10:12 | PROGRESS NOTE ---
DATE: 11/04/2019 SUBJECTIVE: The patient reports feeling fine. No complaints today. OBJECTIVE: Vital Signs: Temperature 98 degrees, heart rate 92, respiratory rate 20, blood pressure 117/81, O2 saturation 95% on room air. General: This is a chronically ill-appearing, 69- year-old, female, lying in bed in no acute distress. HEENT: Head is normocephalic. The patient has an ecchymosis noted across her forehead, bilateral eyes and cheek area, and the swelling is getting better. Neck: No JVD noted. No carotid bruits. No lymphadenopathy. No thyromegaly. Cardiovascular: S1, S2 heard. No murmurs, gallops, or rubs. Regular rate and rhythm. Respiratory: Clear bilaterally to auscultation. No work of breathing or using accessory muscles. Abdomen: Soft, nontender to palpation. Bowel sounds present. No organomegaly. Extremities: No clubbing, cyanosis, or edema. Peripheral pulses present in both legs. Neurological: The patient is alert and oriented x3. Moves all 4 extremities. LABORATORY DATA: White cell count 3.12, hemoglobin 8.6, hematocrit 26.3, platelets 129,000. Sodium 135, potassium 3.3. Phosphorus 1.6, magnesium 2.0. Total bilirubin is 8.14. ASSESSMENT AND PLAN: 1. Hypotonic hyponatremia. That condition is resolved. The patient is eating and drinking better. 2. Abnormal liver function tests. Bilirubin continues to improve. From 11 two days ago, and this morning is 8.1. There is an abnormal HIDA scan with no emptying of gallbladder. Surgery recommended to do an magnetic resonance cholangiopancreatography. Will see what it shows. Will see if they finally decide to do cholecystectomy or not. Gastroenterology is also following this patient, and recommends to continue monitoring liver function tests. 3. Escherichia coli urinary tract infection. Will continue with ceftriaxone, but will change to oral medication when this patient is ready to go. 4. Recurrent falls. Aware. Physical Therapy working with this patient. 5. History of cirrhosis of the liver and alcohol abuse. Aware. Abnormal transaminase and elevated bilirubin noted. Gastroenterology following. 6. Disposition. At this point, we are following the lead from General Surgery and Gastroenterology. cc: Gama Bella MD
--- NOTE | 2019-11-04 14:44 | GASTROENTEROLOGY PROGRESS NOTE ---
DATE: 11/04/2019 ATTENDING PHYSICIAN: Dr. Nguyen. SUBJECTIVE: Patient resting in bed. She is feeling better. She denies any nausea, vomiting. Denies any bowel movements today. She denies any fevers, rigors, chills. OBJECTIVE: Vital signs: Temperature 98.7, pulse rate of 99, respiratory rate of 20, blood pressure 132/84, saturating 98% on room air. Body weight of 155 pounds 12.8 ounces, BMI 24.4 kg/m2. General appearance: Moderately built, moderately nourished, lying in bed, in no acute distress. HEENT: Pale conjunctivae. Icteric sclerae. Pupils equal, reactive to light. Neck: Supple. Abdomen: Soft. Mild discomfort in the epigastric region. No rebound or guarding. Extremities: No cyanosis, clubbing. Neurologic: She is alert, awake, oriented x3. LABS: Her hemoglobin and hematocrit are 8.6 and 26.3, white count 3.12, platelet count 129,000. INR 1.2 with PT of 16.2. Sodium 135, potassium 3.3, chloride 100, bicarb 25, anion gap 10, BUN of 2, creatinine 0.4, glucose of 125, calcium is 8.4, phosphorus 1.6, magnesium 2.0. Total bilirubin is 8.14 which is trending down, AST 245, ALT 128, alkaline phosphatase is 227, total protein is 5.2, albumin of 2.6. Hepatitis panel is nonreactive. IMPRESSION: 1. Hyponatremia which is improving. 2. Elevated liver enzymes. 3. Jaundice. 4. Alcoholic liver disease. 5. Distended gallbladder. 6. Escherichia coli urinary tract infection. 7. Recurrent falls. 8. Liver cirrhosis secondary alcohol abuse. 9. Gallbladder sludge. 10. Fatty liver. 11. Anemia. 12. Melena which is now resolved. 13. Nausea and vomiting which has resolved. RECOMMENDATIONS: We will continue to follow the patient's liver enzymes. They are trending down. Patient is encouraged to quit alcohol completely. We are watching her for withdrawals. She has not had a bowel movement for the last 2 days. We will start her on lactulose 30 mL b.i.d. General Surgery is on board for further workup of gallbladder sludge. They are holding off on any surgical intervention at this moment. The patient will need to possibly follow up with the general surgeon as an outpatient in 3 to 4 weeks. She will continue IV Zofran for nausea and vomiting. Nausea and vomiting has improved. She continues to have poor oral intake so far which could be secondary to alcoholic liver disease. She will continue GI prophylaxis with Protonix. Will keep her on banana bag once daily. We will watch her blood counts and transfuse as needed. Electrolytes are being replete per the primary are team. Above plan was discussed with the patient and all questions answered. Please call us with any further questions. cc: MD Gama Stout MD
--- NOTE | 2019-11-04 14:54 | GENERAL SURGERY PROGRESS NOTE ---
DATE: 11/04/2019 SUBJECTIVE: She remains very weak. Says she cannot walk. Not really having much in the way of abdominal pain. She mostly complains about her tongue hurting. PHYSICAL EXAM: Vital signs: She is alert. Cardiovascular: Normal rate. Neurological: She is a little tremulous. Abdomen: Soft, nontender, nondistended. LABS: White count 3, hematocrit 26. Bilirubin is down to 8.14. Transaminase and alkaline phosphatase are downtrending as well. ASSESSMENT AND PLAN: A 69-year-old female. She has gallbladder sludge and acute hepatitis, most likely alcoholic in etiology given her significant metabolic, electrolyte, and hematologic derangements. In the setting of all this, we will allow this to resolve. She does have steatosis and extensive alcohol history. I would advise against elective cholecystectomy at this juncture. I will order some nystatin for her tongue. cc: Karo Patton MD
[2019-11-04] MEDS: MYCOSTATIN SUSP PO SCH ×2 (17:20→20:31)
[2019-11-04] MEDS: NEURONTIN PO SCH (20:31)
[2019-11-04] MEDS: LACTULOSE PO SCH (20:31)
[2019-11-04] MEDS: SODIUM CHLORIDE 0.9% INJ SCH (20:31)
[2019-11-04] MEDS: PROTONIX IV SCH (20:31)
[2019-11-05 07:39] LABS: BASO# 0.09 X1000 (0.0-0.2); BASO% 1.9 % (0.0-0.8); EOS# 0.07 X1000 (0.0-0.7); EOS% 1.5 % (0.0-10.0); HEMATOCRIT 27.3 % (37.0-47.0); IMM GRAN# 0.05 X1000 (0.0-0.04); IMM GRAN% 1.1 % (0.0-0.5); LYMPH# 1.19 X1000 (1.2-3.4); MCH 34.5 PG (27-31); MCV 104.6 FL (81-99); MONO# 0.76 X1000 (0.11-0.59); NEUT% 54.5 % (42.2-75.2); PLT 156 X1000 (130-400); RBC 2.61 XMIL (4.2-5.4); RDW 17.2 % (11.5-14.5); WBC 4.76 X1000 (4.8-10.8)
[2019-11-05 07:49] LABS: AGAP 11; ALB/GLOB RATIO 1.1; ALBUMIN 2.7 g/dL (3.5-5.0); ALKALINE PHOSPHATASE 240 U/L (32-104); BUN 2 mg/dL (8-22); CALCIUM 8.6 mg/dL (8.8-10.2); CHLORIDE 105 mmol/L (98-107); COSMO 275; CREATININE 0.4 mg/dL (0.5-0.9); ESTIMATED GFR > 60; GLUCOSE 116 mg/dL (70-104); GOT 236 U/L (10-30); GPT 134 U/L (10-36); PHOSPHORUS 2.8 mg/dL (2.7-4.5); POTASSIUM 4.3 mmol/L (3.5-5.1); SODIUM 139 mmol/L (136-145); TCO2 23 mmol/L (25-35); TOTAL BILIRUBIN 7.74 mg/dL (0.20-1.00); TOTAL PROTEIN 5.1 g/dL (6.3-8.3)
[2019-11-05] MEDS ORDERED: ULTRAM PO PRN (09:31)
[2019-11-05] MEDS: WELLBUTRIN XL PO SCH (09:49)
[2019-11-05] MEDS: RITALIN PO SCH ×3 (09:49→17:06)
[2019-11-05] MEDS: CENTRUM SILVER PO SCH (09:49)
[2019-11-05] MEDS: MYCOSTATIN SUSP PO SCH ×4 (09:50→21:29)
[2019-11-05] MEDS: FLEXERIL PO SCH ×2 (09:50→21:28)
[2019-11-05] MEDS: LACTULOSE PO SCH ×2 (09:50→21:27)
--- NOTE | 2019-11-05 10:51 | PROGRESS NOTE ---
DATE: 11/05/2019 SUBJECTIVE: Patient reports feeling fine. Denies any fever or chills. No nausea or vomiting. OBJECTIVE: Vital Signs: Temperature 98.5 degrees, heart rate 101, respiratory 20, blood pressure 136/93. O2 saturation 96%. General: This is a chronically ill-appearing, 61-year-old female lying in bed, in no acute distress. HEENT: Head is normocephalic. Patient has ecchymosis noted across the forehead and bilateral eyes and cheek area and swelling that continues to get better. Neck: No JVD noted. No carotid bruits. No lymphadenopathy. Cardiovascular: S1, S2 heard. No murmurs, gallops, or rubs. Regular rate and rhythm. Respiratory: Clear bilaterally to auscultation. No work of breathing or using accessory muscles. Abdomen: Soft, nontender to palpation. Bowel sounds present. No organomegaly. Extremities: No clubbing, cyanosis, or edema. Peripheral pulses present in both legs. Neurological: Patient alert and oriented x3. Moves 4 extremities. LABORATORY DATA: White cell count 4.76, hemoglobin 9.0 hematocrit 27.2, platelets 156,000. BMP revealed normal potassium with normal creatinine and phosphorus 2.8 total bilirubin 7.74. AST 236, ALT 134. ASSESSMENT AND PLAN: 1. Hypotonic hyponatremia, stable. That condition is completely resolved. 2. Normal liver function tests. Home bilirubin continues to improve slowly. Yesterday, it was 8.14. Today it is 7.7. Gastroenterology is following this patient. They are not planning to do any procedure. She was found to have gallbladder sludge. HIDA scan reveals no emptying of the gallbladder. So at this point, we have decided to do an MRCP to have better visualization of the anatomy in all the area. At this point, as per Dr. Patton's recommendation, they are not recommending a cholecystectomy. If there are no abnormalities on the MRCP, and no new recommendations from Gastroenterology, I think we will discharge this patient tomorrow. 3. Escherichia coli urinary tract infection. We will continue with ceftriaxone but will change to oral medications in this case Levaquin whenever this patient is ready to go. Currently, today is day 5 of antibiotics. 4. Recurrent falls. Aware. Physical therapy working with this patient. Patient already has a rehab bed. If MRCP is okay, we will discharge her tomorrow. 5. History of cirrhosis of the liver and alcohol abuse. Patient recommended to quit drinking completely. She reports still drinking one glass of wine almost daily. We will continue to monitor for withdrawal. 6. Disposition. As we mentioned before, general surgery following. If no procedures are going to be done tomorrow, patient will be discharged tomorrow. cc: Gama Bella MD MTDD
[2019-11-05] MEDS: NEUTRA-PHOS PO SCH ×4 (11:01→21:29)
--- NOTE | 2019-11-05 11:36 | Diag Imaging Result Doc PS360 ---
EXAM: MRI MRCP (ABD W/O CONTRAST) INDICATION: elevated LFTs TECHNIQUE: COMPARISON: CT dated 10/31/2019. No prior MRIs available for comparison. FINDINGS: Excessive motion artifact somewhat limits the study. There is severe hepatic steatosis. No discrete hepatic mass is identified given the limitations of an unenhanced study. The gallbladder exhibits a phrygian cap, a normal variant. It is grossly unremarkable, otherwise. The pancreas is grossly unremarkable as imaged. There is no pancreatic ductal dilatation. Motion artifact somewhat limits evaluation of the common bile duct. However, there is no evidence of biliary dilatation and no ductal filling defects are identified. There is a small cyst at the upper pole of the left kidney that likely contains proteinaceous debris or blood products. The kidneys are grossly unremarkable, otherwise. The visualized abdominal segments of the GI tract are unremarkable. IMPRESSION: 1.Somewhat limited study due to motion artifact. However, no biliary dilatation or common bile duct filling defects are identified. 2.Severe hepatic steatosis. Electronically signed by Gucci Sidhu 11/05/2019 11:34 AM
--- NOTE | 2019-11-05 11:56 | GASTROENTEROLOGY PROGRESS NOTE ---
DATE: 11/05/2019 SUBJECTIVE: Patient resting in bed. She is feeling better. She has continued to have poor oral intake. She had finally a bowel movement yesterday. She had an MRCP done today. The results are currently pending. OBJECTIVE: Vital Signs: Temperature 98.5 degrees, pulse rate of 109, respiratory rate 18, blood pressure 136/93, saturating 96% on room air. Body weight of 155 pounds 12.8 ounces. BMI 24.4 kg. General: The patient is moderately nourished, lying in bed in no acute distress. HEENT: Pale conjunctivae. Icteric sclerae. Pupils equal, reactive to light. Neck: Supple. Abdomen: Protuberant, soft, nontender, nondistended. No guarding or rebound. Extremities: No cyanosis or clubbing. Neurologic: She is alert, awake, oriented x3. IMAGING AND LABORATORY DATA: Hemoglobin and hematocrit are 9 and 27.3, white count of 4.76, platelet count of 136,000. Sodium 139, potassium 4.3, chloride 105, bicarb 23, anion gap of 11, BUN of 2, creatinine 0.4, glucose 116, calcium is 8.6. Phosphorus 2.8. Total bilirubin 7.74, AST 236, ALT 134, alkaline phosphatase 240, total protein 5.1, albumin of 2.7. Blood cultures x2 are negative at 48 hours. MRCP was done today, currently pending. ASSESSMENT AND PLAN: 1. Hyponatremia is now resolved. 2. Elevated liver enzymes and jaundice. We will follow up the results of the magnetic resonance cholangiopancreatography. This is likely secondary to alcoholic liver disease. Will continue with the conservative care. 3. Alcoholism. The patient was counseled to quit alcohol completely. 4. Distended gallbladder. This has been worked up by General Surgery. Magnetic resonance cholangiopancreatography should be able to help find if there is any kind of obstruction in the biliary system. 5. Escherichia coli urinary tract infection. She is currently on ceftriaxone per the primary team. 6. Constipation. She will continue on lactulose 30 mL by mouth twice daily. She had a bowel movement yesterday. 7. Pain control with intravenous morphine, which we need to reduce to the lowest possible as it can contribute to constipation and cholestasis. 8. Gastrointestinal prophylaxis. Proton pump inhibitors. 9. Anemia. Continue to watch for now. Will continue multivitamin once daily. 10. Fatty liver, likely secondary to alcoholic liver disease. The patient was counseled to quit alcohol completely. 11. Gallbladder sludge, being followed by General Surgery. 12. Liver cirrhosis secondary to alcohol abuse. 13. Melena is now resolved. Will start her on iron C twice daily. 14. Nausea and decreased oral intake. Will await the results of the magnetic resonance cholangiopancreatography. If her nausea persists, then we may have to perform an esophagogastroduodenoscopy at some point. The above plans were discussed with the patient, and all questions were answered. Please call with any further questions. cc: MD Dr. Patrick Stout
[2019-11-05] MEDS: ROCEPHIN 1 GM in NS 50 ML IV SCH (12:46)
--- NOTE | 2019-11-05 16:23 | Diag Imaging Result Doc PS360 ---
EXAM: FLAT/UPRIGHT ABD/1 VIEW CHEST HISTORY: nausea, vomiting, sob TECHNIQUE: Four views COMPARISON: 10/31/2019 FINDINGS: There are breast implants. There are increased interstitial markings in the lung bases on the current exam. No consolidation. No bowel obstruction. There is stool proximal colon. No organomegaly. Mild scoliosis. 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 IMPRESSION: Basilar atelectasis versus small infiltrates. Electronically signed by Flavio Gross 11/05/2019 4:21 PM
[2019-11-05] MEDS: MAGNESIUM SULFATE IV SCH (21:27)
[2019-11-05] MEDS: PROTONIX IV SCH (21:27)
[2019-11-05] MEDS: THIAMINE IV SCH (21:27)
[2019-11-05] MEDS: FOLIC ACID IV SCH (21:27)
[2019-11-05] MEDS: M V I IV SCH (21:27)
[2019-11-05] MEDS: [UNRECOGNIZED DRUG - OTHER] IV SCH (21:27)
[2019-11-05] MEDS: ZOFRAN IV PRN (21:28)
[2019-11-05] MEDS: MORPHINE IV PRN (21:28)
[2019-11-05] MEDS: NEURONTIN PO SCH (21:29)
[2019-11-05] MEDS: ICAR-C PO SCH (21:29)
[2019-11-05] MEDS: SODIUM CHLORIDE 0.9% INJ SCH (21:29)
[2019-11-06 07:18] LABS: BASO# 0.05 X1000 (0.0-0.2); BASO% 1.2 % (0.0-0.8); EOS# 0.06 X1000 (0.0-0.7); EOS% 1.5 % (0.0-10.0); HEMATOCRIT 26.1 % (37.0-47.0); HEMOGLOBIN 8.4 g/dL (12.0-16.0); IMM GRAN# 0.06 X1000 (0.0-0.04); IMM GRAN% 1.5 % (0.0-0.5); LYMPH# 1.17 X1000 (1.2-3.4); LYMPH% 28.5 % (20.5-51.1); MCH 34.4 PG (27-31); MCHC 32.2 g/dL (33-37); MONO# 0.65 X1000 (0.11-0.59); MONO% 15.9 % (1.7-9.3); MPV 10.8 FL (7.4-10.4); NEUT# 2.11 X1000 (1.4-6.5); NEUT% 51.4 % (42.2-75.2); PLT 159 X1000 (130-400); RBC 2.44 XMIL (4.2-5.4); RDW 17.3 % (11.5-14.5)
[2019-11-06 07:45] LABS: AGAP 9; ALB/GLOB RATIO 0.9; ALBUMIN 2.3 g/dL (3.5-5.0); ALKALINE PHOSPHATASE 219 U/L (32-104); BUN 3 mg/dL (8-22); CALCIUM 8.4 mg/dL (8.8-10.2); CHLORIDE 103 mmol/L (98-107); COSMO 268; CREATININE 0.4 mg/dL (0.5-0.9); ESTIMATED GFR > 60; GLUCOSE 123 mg/dL (70-104); GOT 188 U/L (10-30); GPT 113 U/L (10-36); PHOSPHORUS 2.8 mg/dL (2.7-4.5); POTASSIUM 3.4 mmol/L (3.5-5.1); SODIUM 135 mmol/L (136-145); TCO2 23 mmol/L (25-35); TOTAL BILIRUBIN 6.66 mg/dL (0.20-1.00); TOTAL PROTEIN 4.8 g/dL (6.3-8.3)
[2019-11-06 07:47] VITALS: BP 105/64
--- NOTE | 2019-11-06 08:03 | DISCHARGE SUMMARY ---
ADMISSION DATE: 10/31/2019 DISCHARGE DATE: 11/06/2019 DISCHARGE DIAGNOSES: 1. Hypotonic hyponatremia, resolved. 2. Abnormal liver function tests, transaminitis. 3. Escherichia coli urinary tract infection. 4. Recurrent falls. 5. History of cirrhosis of the liver and alcohol abuse. 6. Facial trauma. 7. Nausea, vomiting, and diarrhea. Resolved. 8. Hypokalemia, resolved. CONSULTATIONS: 1. Dr. Tohmpson from General Surgery. 2. Dr. Lito Johnson from GI. PROCEDURES: 1. Abdomen and pelvis CT showed marked hepatic steatosis and faint perinephric stranding around the right kidney, suggesting pyelonephritis. 2. Maxillofacial CT showed no facial bone fracture or dislocation. There is degeneration of the right temporomandibular joints. 3. Abdominal ultrasound shows severe fatty change of the liver with significant sludge in the gallbladder and tiny left renal cyst. 4. HIDA scan showed abnormal exam with no measurable emptying from the gallbladder. 5. MRCP showed somewhat limited study due to motion artifact. However, no biliary dilatation or common bile duct filling defects are identify. 6. Abdominal x-ray showed basilar atelectasis versus small infiltrates. HOSPITAL COURSE: In brief, this is a patient who presented to the emergency department complaining of abdominal pain, nausea, and vomiting. She has history of Clostridium difficile in the past. She reported that she was having falls. In the emergency department, she was found out to be severely hyponatremic, and with facial trauma, we ordered a CT of the head and neck and maxillofacial with results as above. Her liver function tests were elevated, so we did a CT of abdomen and pelvis with abdominal ultrasound. Considering this biliary sludge, we decided to consult General Surgery, and they did HIDA scan with results as above. Surgeon does not think this patient will need a cholecystectomy at this time. Just to double check that there are no other obstructions in the biliary tree, we have ordered an MRCP with results as above. At this time, after fluid resuscitation, the patient's electrolytes are back to normal. The patient used to be an alcoholic, although she is still drinking one glass of wine per day, sometimes 2. The patient was strongly advised to stop drinking alcohol. Her bilirubin continues to trend down. The patient is going to be sent to rehab facility, and then she will be seen by GI in the office in 4 weeks. DISCHARGE PHYSICAL EXAMINATION: Vital Signs: Temperature 98.2 degrees, heart rate 97, respiratory rate 16, blood pressure 118/82, O2 saturation 94% on room air. General: This is a chronically ill-looking, 69-year-old, female, lying in bed in no acute distress. HEENT: Head is normocephalic. The patient has ecchymosis noted across the forehead and bilateral eyes and cheek area, and swelling of the face that continues to get better. Neck: No JVD noted. No carotid bruits. No lymphadenopathy. No thyromegaly. Cardiovascular: S1, S2 heard. No murmurs, gallops, or rubs. Regular rate and rhythm. Respiratory: Clear bilaterally to auscultation. No work of breathing or using accessory muscles. Abdomen: Soft, nontender to palpation. Bowel sounds present. No organomegaly. Extremities: No clubbing, cyanosis, or edema. Peripheral pulses present in both legs. Neurological: The patient is alert, oriented x3. Moves all 4 extremities. DISCHARGE DISPOSITION: The patient is going to rehab facility. DISCHARGE MEDICATIONS: 1. Baclofen 10 mg 1 tablet p.o. 3 times per day. 2. Centrum Silver 1 tablet p.o. daily. 3. Levofloxacin 750 mg 1 tablet p.o. daily for 7 days. 4. Tramadol 50 mg 1 tablet p.o. every 6 hours as needed for pain. 5. Icar C one tablet p.o. twice daily. 6. Lactulose 30 mL p.o. twice daily as needed for constipation. 7. Wellbutrin XL 300 mg 1 tablet p.o. daily. 8. Gabapentin 300 mg 1 tablet p.o. at bedtime. 9. Ritalin 20 mg 1 tablet p.o. 3 times per day. TIME SPENT: Time discharging this patient was 35 minutes. cc: Gama Bella MD MTDJose
[2019-11-06 08:32] LABS: BANDS 8 % (0-1); EOS 2 % (1-10); LYMPHS 20 % (21-51); MONO 10 % (1-9); SEGS 60 % (42-75)
[2019-11-06 08:33] LABS: ANISOCYTOSIS 1+; HYPOCHROM 1+
[2019-11-06] MEDS: FLEXERIL PO SCH (09:25)
[2019-11-06] MEDS: NEUTRA-PHOS PO SCH (09:25)
[2019-11-06] MEDS: WELLBUTRIN XL PO SCH (09:25)
[2019-11-06] MEDS: RITALIN PO SCH (09:25)
[2019-11-06] MEDS: LACTULOSE PO SCH (09:25)
[2019-11-06] MEDS: CENTRUM SILVER PO SCH (09:25)
[2019-11-06] MEDS: ICAR-C PO SCH (09:25)
[2019-11-06] MEDS: MYCOSTATIN SUSP PO SCH (09:25)
--- NOTE | 2019-11-06 10:51 | GENERAL SURGERY PROGRESS NOTE ---
DATE: 11/05/2019 SUBJECTIVE: The patient denies abdominal pain, nausea, or vomiting. OBJECTIVE: Vital Signs: She is afebrile. Vital signs are stable. General: She is awake, alert, oriented x3. No acute distress. Gastrointestinal: Soft, nontender, nondistended. LABORATORY: White blood cell count 4.7, hemoglobin 9, hematocrit 27, total bilirubin 7, AST 236, ALT 134, alkaline phosphatase 240. ASSESSMENT/PLAN: This female has gallbladder sludge and acute hepatitis, likely alcoholic in nature. At some point, she may need her gallbladder removed, but for now, we want her to follow up with us as an outpatient. Symptomatically, she seems much improved. cc: De Thompson MD
== END 2019-11-06 11:31 | DRG 641 ==
LOC: SUPCPDRO → ED 23:38 → EDIPHOLD 10-31 08:35 → ICU 10-31 16:48 → 4N 11-01 18:22
PROVIDERS: ATTEND Internal Medicine